=== PATIENT | male | born 1960 | race Caucasian/White ===

== ENCOUNTER → 2018-08-19 18:56 | Outpatient (CLI) | payer BC, SELFPAY ==
[2018-08-19 19:09] LABS: Basophils % 0.6 % (0.1-2.0); Eosinophils # 0.1 K/mm3 (0.0-0.4); Eosinophils % 2.2 % (0.1-12.0); Hematocrit 48.7 % (42.0-52.0); Hemoglobin 16.1 g/dL (14.1-18.0); Lymphocytes # 1.6 K/mm3 (0.7-4.5); Lymphocytes % 25.8 % (10-50); Mean Corpuscular Hemoglobin 30.5 pg (27.0-31.2); Mean Corpuscular Volume 92.4 fl (80-94); Mean Platelet Volume 7.9 fl (7.4-10.4); Monocytes # 0.4 K/mm3 (0.1-1.0); Monocytes % 6.5 % (1.7-9.3); Neutrophils # 4.1 K/mm3 (1.8-7.8); Neutrophils % 64.9 % (37.0-80.0); Platelet Count 258 K/mm3 (142-424); Red Blood Count 5.27 M/mm3 (4.60-6.20); Red Cell Distribution Width 13.6 % (11.5-17.5); White Blood Count 6.2 K/mm3 (4.8-10.8)
[2018-08-19 20:14] LABS: Alanine Aminotransferase 42 U/L (12-78); Albumin/Globulin Ratio 1.1 (1.1-1.8); Alkaline Phosphatase 90 U/L (46-116); Anion Gap 12.1 mEq/L (5-15); Aspartate Amino Transferase 31 U/L (15-37); Bilirubin,Total 0.9 mg/dL (0.2-1.0); Blood Urea Nitrogen 13 mg/dL (7-18); Calcium 8.5 mg/dL (8.5-10.1); Carbon Dioxide 28 mmol/L (21.0-32.0); Chloride 103 mmol/L (98-107); Chol/HDL Ratio 2.8 (1-3.5); Cholesterol 134 mg/dL (140-200); Creatinine,Serum 1.02 mg/dL (0.70-1.30); Estimated Glomerular Filt Rate 75 ml/min (>60); GFR (African American) 90 ML/MIN (>60); Globulin 3.5 gm/dl (1.3-3.2); Glucose 122 mg/dL (74-106); HDL Cholesterol 48 mg/dL (27-67); LDL Cholesterol 70 mg/dL (0-130); Potassium 4.1 mmoL/L (3.5-5.1); Sodium 139 mmol/L (136-145); T4 (Thyroxine) 10.9 ug/dl (4.7-13.3); Thyroid Stimulating Hormone 1.37 uIU/ml (0.358-3.740); Total Protein,Serum 7.5 gm/dL (6.4-8.2); Triglycerides 79 mg/dL (30-200); VLDL Cholesterol 16 mg/dL (0-40)
[2018-08-21 10:32] LABS: PSA, Free 0.22 ng/mL; Prostate Specific Ag 0.6 ng/mL (0.0-4.0); Vitamin D 25 Hydroxy 24.2 ng/mL (30.0-100.0)
== END ==
PROVIDERS: Visit Provider Nurse Practitioner Family
DX: I10 Essential (primary) hypertension (principal); M62.838 Other muscle spasm; Z76.89 Persons encountering health services in other specified circumstances
CPT/HCPCS: 80053; 80061; 82652; 84153; 84154; 84436; 84443; 85025

== ENCOUNTER → 2018-09-12 09:42 | Outpatient (CLI) | payer BC, SELFPAY ==
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
--- NOTE | 2018-09-12 09:45 | XR_ITS ---
EXAM: XR thoracic spine 3V HISTORY: Back pain ITS.REASON: pain Comparison: None FINDINGS: Normal alignment. No fracture or dislocation. No lytic or blastic change. There is multilevel degenerative disc disease with endplate osteophytes. There is mild wedging involving what appears to represent T10 T9 and T8. There are no previous exams available for comparison to determine if these are old or new. There are endplate osteophytes at these levels suggesting a chronic process. IMPRESSION: Multilevel degenerative disc disease with mild loss of height anteriorly at T8-T9 and T10 age indeterminate. MRI may be of further value to determine these are old or acute if clinically warranted
--- NOTE | 2018-09-12 09:45 | XR_ITS ---
EXAM: XR lumbar spine min 4V HISTORY: Low back pain ITS.REASON: pain ORDERING PHYSICIAN: Pako Castillo MD PATIENT AGE: 58 years COMPARISON: None FINDINGS: There is straightening of lumbar lordosis. Mild endplate hypertrophic changes are present from L1 to S1 greater at L4-L5 and L5-S1. There is degenerative disc disease at L4-L5 and L5-S1 greatest at L5-S1. No fracture or dislocation is evident. No lytic or blastic change. Incidental vascular calcification is present. IMPRESSION: Degenerative disc disease L4-L5 and L5-S1 with osteophytosis
--- NOTE | 2018-09-12 09:45 | XR_ITS ---
EXAM: XR cervical spine 5V HISTORY: Neck pain ITS.REASON: pain ORDERING PHYSICIAN: Pako Castillo MD PATIENT AGE: 58 years COMPARISON: None FINDINGS: There is mild degenerative disc disease at C5-6 and C6-C7. There is 3 mm anterolisthesis of C6 on C7. Facet hypertrophic change with right-sided foraminal narrowing at C4-5 E56 C6-C7 and C7-T1. There is mild left foraminal narrowing at C3-C4. No fracture or dislocation. No lytic or blastic change. No cervical rib apparent. IMPRESSION: Cervical spondylosis with degenerative disc disease along with facet and uncovertebral arthrosis with foraminal narrowing as described above
--- NOTE | 2018-09-12 09:46 | CA_ITS ---
PROCEDURE: 2-D M-mode and color Doppler study INDICATIONS FOR THE TEST: Chest pain + COPD Heart Murmur Tobacco Smoking Palpitations+ Fatigue Syncope Edema Hypertension+Diabetes Mellitus Rheumatic Fever SOB+FELICIANO Obesity Hyperlipidemia Family History HD Additional History PATIENT INFORMATION HEIGHT: 71 WEIGHT:225 GENDER: Male B/P:172/98 2-D/M-MODE INTERPRETATION: 2-D MEASUREMENTS OBSERVED VALUES IN CMS Right Ventricular Dimension (RVDd) 2.7 Interventricular Septum (Thickness)(IVsd) 1.1 Left Ventricular Internal Dimensions(LVIDd) 5.0 Left Ventricular Posterior Wall (Thickness)(LVPWd) 1.0 Aortic Root 3.2 Aortic Cusp Separation 2.2 Left Atrial Dimensions (LAD) 3.7 2D 1. Left atrium is mildly enlarged, left ventricle is normal size, mild concentric left ventricular hypertrophy, visually estimated ejection fraction 55% with no regional wall motion abnormality. 2. The right atrium and right ventricle are normal size and contractility. 3. The aortic valve is minimally thickened and fibrosed. 4. The mitral and tricuspid valve leaflets are minimally thickened. 5. The pulmonic valve is poorly visualized. 6. No significant pericardial effusion noted. DOPPLER INTERROGATION: Doppler interrogation of the aortic, mitral and tricuspid valvular presence of mild mitral and tricuspid regurgitation, tricuspid regurgitant jet velocity is inadequate for calculation of the right ventricular systolic pressure, grade 1 diastolic dysfunction seen with tissue Doppler evidence of raised left atrial pressure. CONCLUSION: 1. Mildly enlarged left atrium, normal left ventricular size, mild concentric left ventricular hypertrophy, visually estimated ejection fraction 55% with no regional wall motion abnormality, grade 1 diastolic dysfunction seen with tissue Doppler evidence of raised left atrial pressure. 2. Mild mitral and tricuspid regurgitation. 3. No significant pericardial effusion noted.
--- NOTE | 2018-09-12 09:46 | NM_ITS ---
History and Indications: Hypertension, tobacco use, family history, chest pain, palpitations and fatigue Procedure: Patient received a 0.4, intravenous Lexiscan, resting heart rate was 63 bpm resting blood pressure 177 /100, with Lexiscan maximum heart rate achieved was 74 bpm, which is less than 85% of the maximum predicted heart rate and a blood pressure was 175/101. With Lexiscan patient complained of abdominal pain Electrocardiogram: Resting electrocardiogram showed sinus rhythm inferolateral ST-T subendocardial ischemia, with Lexiscan less than 1.[address] segment depression noted from the baseline EKG. The EKG portion of the Lexiscan Myoview is nondiagnostic. Cardiac stress and resting SPECT images: Cardiac stress and resting SPECT were obtained using technetium 99 Myoview 31.5 mCi stress 10.2 mCi at rest. Gated SPECT further analysis of segmental wall motion and calculation of the ejection fraction also done. Cardiac stress and the suspect show uniform myocardial activity without segmental perfusion abnormality, computer derived ejection fraction 45% with no wall motion abnormality, right ventricle is normal size and contractility. Conclusion: 1. The EKG portion of the Lexiscan Myoview is nondiagnostic. 2. No scintigraphic evidence of reversible ischemia seen, computer derived ejection fraction is 45% with no regional wall motion abnormality, right ventricle are normal size and contractility.
[2018-09-12 12:22] LABS: Erythrocyte Sedimentation Rate 7 mm/hr (0-20)
[2018-09-12 12:26] LABS: C-Reactive Protein 3.1 mg/L (0.0-0.9)
[2018-09-12 13:28] LABS: Anion Gap 14.5 mEq/L (5-15); Blood Urea Nitrogen 13 mg/dL (7-18); Carbon Dioxide 27 mmol/L (21.0-32.0); Chloride 101 mmol/L (98-107); Creatinine,Serum 1.05 mg/dL (0.70-1.30); Estimated Glomerular Filt Rate 72 ml/min (>60); GFR (African American) 87 ML/MIN (>60); Potassium 3.5 mmoL/L (3.5-5.1); Sodium 139 mmol/L (136-145)
[2018-09-12 13:29] LABS: Calcium 8.8 mg/dL (8.5-10.1); Glucose 85 mg/dL (74-106)
--- NOTE | 2018-09-12 13:44 | HMH.ITSHM ---
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 []lisinopril
[2018-09-13 13:12] LABS: Anti-Centromere B Antibodies <0.2 AI (0.0-0.9); Anti-Jo-1 <0.2 AI (0.0-0.9); Anti-Smith Antibody <0.2 AI (0.0-0.9); Antichromatin Antibodies <0.2 AI (0.0-0.9); Antiscleroderma-70 Antibodies <0.2 AI (0.0-0.9); RNP Antibodies <0.2 AI (0.0-0.9); Sjogren's Anti-SS-A <0.2 AI (0.0-0.9); Sjogren's Anti-SS-B <0.2 AI (0.0-0.9)
[2018-09-14 11:58] LABS: Anti-Cyclic Citrullinated Pept 10 units (0-19); Anti-DNA (DS) Ab Qn 1 IU/mL (0-9); RA Latex Turbid. <10.0 IU/mL (0.0-13.9)
== END ==
PROVIDERS: Internal Medicine Cardiovascular Disease; PCP Nurse Practitioner Family; Visit Provider Internal Medicine
DX: R00.2 Palpitations (principal); R07.89 Other chest pain; R60.9 Edema, unspecified; I10 Essential (primary) hypertension; M54.9 Dorsalgia, unspecified; M54.2 Cervicalgia; R52 Pain, unspecified; F17.200 Nicotine dependence, unspecified, uncomplicated
CPT/HCPCS: 36415; 71250; 72050; 72072; 72110; 78452; 80048; 83880; 85651; 86140; 86200; 86225; 86235; 86431; 93017; 93306; A9502; J2785

== ENCOUNTER → 2018-10-08 09:59 | Outpatient (POV) | payer MEDICAID, SELFPAY ==
[2018-10-08 10:19] VITALS: BP 133/85; PULSE 85; RESP 18; O2SAT 98
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
== END ==
PROVIDERS: PCP Nurse Practitioner Family; Visit Provider Clinical Nurse Specialist Family Health
DX: M51.36 Other intervertebral disc degeneration, lumbar region (principal); M48.50XA Collapsed vertebra, not elsewhere classified, site unspecified, initial encounter for fracture
CPT/HCPCS: 99202

== ENCOUNTER → 2018-10-16 13:27 | Outpatient (CLI) | payer MEDICAID, SELFPAY ==
--- NOTE | 2018-10-16 13:29 | MR_ITS ---
MR thoracic spine wo con HISTORY: PT states back pain from neck to low back. Pain X years. Bilateral leg and arm pain, weakness in hands, back locks up. ITS.REASON: BACK PAIN ORDERING PHYSICIAN: Jelena Dueñas PATIENT AGE: 58 years Comparison: X-RAY 09/12/18 TECHNIQUE: Standard multiplanar multiecho sequences are performed without contrast. 3-D MIP and myelographic images are also rendered and reviewed FINDINGS: There is minimal anterolisthesis of C7 on T1. This is on the edge of the field on the sagittal images and may be better evaluated with MRI of the cervical spine. There is some questionable minimal flattening of the cord anteriorly at this level not confirmed on the axial images however. T1-T2: Mild degenerative disc disease There is multilevel anterior and right lateral osteophytes from T3 to T12. There is mild multilevel degenerative disc disease with some decrease in the disc spaces and minimal disc desiccation. This is present T6 to T12. There is minimal right paracentral disc protrusion at T6-T7 without impingement. Minimal central disc protrusion at T10-T11 No extruded herniated disc. No canal stenosis. IMPRESSION: 1. Mild multilevel degenerative disc disease of the thoracic spine as detailed above. 2. Minimal right paracentral disc protrusion at T6-T7 and minimal central disc protrusion at T10-T11. 3. No extruded herniated disc canal stenosis or cord impingement evident. 4. There is minimal anterolisthesis of C7 on T1. There is some questionable minimal contour deformity of the cord at this level on the sagittal images however this is on the edge of the imaging field and may be better evaluated with MRI of the cervical spine if clinically warranted
== END ==
PROVIDERS: PCP Nurse Practitioner Family; Visit Provider Clinical Nurse Specialist Family Health
DX: M54.6 Pain in thoracic spine (principal)
CPT/HCPCS: 72146

== ENCOUNTER → 2018-10-21 10:25 | Outpatient (POV) | payer MEDICAID, SELFPAY ==
[2018-10-21 10:53] VITALS: BP 194/95; PULSE 54; RESP 18; O2SAT 98; BMI 35.5
--- NOTE | 2018-10-21 12:20 | HMH.PAINSOAP ---
[facility] Pain Management SOAP Note Subjective:: Patient is a pleasant 58-year-old white male who presents today for follow-up after thoracic spine MRI. Patient did not have a compression fracture however he did have some degenerative changes. Patient states that most of the pain is at the lower cervical higher thoracic spine. Patient is interested in injective therapy. He is tried physical therapy in the past and continues a home stretching therapy. He is tried and failed multiple medications for the last several years. He has had pain for over 30 years. ROS General: no recent weight change, no fever, no sleep disturbances Respiratory: no cough, no shortness of air, no recurring pulmonary infections Cardiovascular/Peripheral Vascular: No chest pain, No palpitations, no edema, no shortness of breath. Gastrointestinal: no incontinence, normal bowel movements reported Genitourinary: no incontinence Musculoskeletal: Mid back pain, neck pain Psychiatric: normal mood/ affect Neurological: [denies weakness in extremities], [denies balance issues] Objective:: Physical Exam General: Alert and oriented x3, no acute distress, pleasant and cooperative, [on room air] Lungs: Resps E/U, Symmetrical chest expansion, Eyes: PERRL Musculoskeletal: Flexion and extension of cervical and thoracic spine somewhat guarded secondary to pain, deep tendon reflexes normal, strength in upper and lower extremities [5/5], antalgic gait noted Neurological: speech clear, box icer equal, no gross sensory deficits Assessment:: Degenerative disc disease cervical and thoracic spine with cervical radiculopathy Plan:: We will plan a C7-T1 epidural steroid injection. Patient is not on any anticoagulation therapy. I will follow-up with the patient after his injection and reassess his symptoms at that time. Dr. Beck has reviewed this note and agrees with this plan of care. This note was dictated using voice recognition software and may contain errors or omissions
== END ==
PROVIDERS: PCP Nurse Practitioner Family; Visit Provider Clinical Nurse Specialist Family Health
DX: M50.10 Cervical disc disorder with radiculopathy, unspecified cervical region (principal); M51.34 Other intervertebral disc degeneration, thoracic region
CPT/HCPCS: 99213

== ENCOUNTER → 2018-11-26 09:33 | Outpatient (POV) | payer MEDICAID, SELFPAY ==
[2018-11-26 10:07] VITALS: BP 139/97; PULSE 64; RESP 18; O2SAT 98; BMI 31.1
--- NOTE | 2018-12-03 08:58 | P.CONS_ITS ---
[facility] Pain Management SOAP Note Subjective:: She is a very pleasant 58-year-old white male who presents today for follow-up after cervical epidural steroid injection. Patient states it was very beneficial his radicular symptoms have improved significantly. He rates his pain a 4 out of 10 however it is more muscular in nature. Patient does have palpable trigger points cervical paraspinous bilaterally. Patient states he does have muscle spasms at times. Patient is currently on anti-inflammatories. He is also continuing a home stretching program. ROS General: no recent weight change, no fever, no sleep disturbances Respiratory: no cough, no shortness of air, no recurring pulmonary infections Cardiovascular/Peripheral Vascular: No chest pain, No palpitations, no edema, no shortness of breath. Gastrointestinal: no incontinence, normal bowel movements reported Genitourinary: no incontinence Musculoskeletal: Neck pain Psychiatric: normal mood/ affect Neurological: [denies weakness in extremities], [denies balance issues] Objective:: Physical Exam General: Alert and oriented x3, no acute distress, pleasant and cooperative, [on room air] Lungs: Resps E/U, Symmetrical chest expansion, Eyes: PERRL Musculoskeletal: Flexion and extension of cervical spine somewhat guarded secondary to pain, deep tendon reflexes normal, strength in upper and lower extremities [5/5], normal gait noted, palpable trigger points cervical paraspinous and upper trapezius Neurological: speech clear, wet cleaner machine equal, no gross sensory deficits Assessment:: Myofascial pain syndrome, degenerative disc disease cervical spine with cervical radiculopathy Plan:: We will set up trigger point injections for the patient to see if these are beneficial we will also start him on Flexeril 10 mg 1 p.o. 3 times daily as needed. I will follow-up with the patient had his injections he is been instructed to call the office if he has any issues prior to his next appointment. Dr. Beck has reviewed this note and agrees with this plan of care. This note was dictated using voice recognition software and may contain errors or omissions
== END ==
PROVIDERS: PCP Nurse Practitioner Family; Visit Provider Clinical Nurse Specialist Family Health
DX: M79.18 Myalgia, other site (principal); M50.10 Cervical disc disorder with radiculopathy, unspecified cervical region
CPT/HCPCS: 99212

== ENCOUNTER 2019-11-04 12:51 | Inpatient (IN) ==
[2019-11-04 13:42] LABS: Basophils % 0.1 % (0.1-2.0); Eosinophils # 0.1 K/mm3 (0.0-0.4); Eosinophils % 0.9 % (0.1-12.0); Hematocrit 53.2 % (42.0-52.0); Hemoglobin 17.6 g/dL (14.1-18.0); Lymphocytes # 0.7 K/mm3 (0.7-4.5); Lymphocytes % 5.3 % (10-50); Mean Corpuscular HGB Conc 33.2 g/dL (31.8-35.4); Mean Corpuscular Volume 92.1 fl (80-94); Mean Platelet Volume 7.7 fl (7.4-10.4); Monocytes # 0.4 K/mm3 (0.1-1.0); Monocytes % 2.7 % (1.7-9.3); Neutrophils # 12.1 K/mm3 (1.8-7.8); Platelet Count 278 K/mm3 (142-424); Red Blood Count 5.77 M/mm3 (4.60-6.20); Red Cell Distribution Width 13.3 % (11.5-17.5); White Blood Count 13.3 K/mm3 (4.8-10.8)
[2019-11-04 13:45] LABS: Alanine Aminotransferase 32 U/L (12-78); Albumin Level 4.7 g/dl (3.5-5.0); Albumin/Globulin Ratio 1.2 (1.1-1.8); Alkaline Phosphatase 87 U/L (38-126); Amylase 55 U/L (30-110); Anion Gap 16.9 mEq/L (5-15); Aspartate Amino Transferase 29 U/L (17-59); Bilirubin,Total 1.4 mg/dl (0.2-1.3); Blood Urea Nitrogen 21 mg/dl (9-20); Calcium 9.9 mg/dl (8.4-10.2); Carbon Dioxide 25 mmol/L (22.0-30.0); Chloride 99 mmol/L (98-107); Globulin 3.8 g/dL (1.3-3.2); Glucose 178 mg/dl (74-100); Sodium 137 mmol/L (136-145); Total Protein,Serum 8.5 g/dl (6.3-8.2)
[2019-11-04 13:53] LABS: Hypochromasia 1+; Lymphocytes % 5 % (10-50); Monocytes % 5 % (2-9); Neutrophils % 90 % (42-76); Total Cells Counted 100
--- NOTE | 2019-11-04 15:00 | Emergency Department Note ---
ED Disposition Clinical Impression: Gastroenteritis, Small bowel obstruction Disposition: Admitted as Observation Condition on Discharge: Good Additional Instructions: Spoke to Dr. Victor for admission. Referrals: Maya Morrison APRN [Primary Care Provider] - - Critical Care Critical Care Time: No Attestation: On 11/04/19, the high probability of a clinically significant, sudden or life threatening deterioration of the following system(s) required my full and direct attention, intervention and personal management. The time I documented below is in addition to time spent performing reported procedures but includes the following listed in this critical care notation. Medical Decision Making - Medical Records Medical records reviewed: Yes: I reviewed the patient's medical records. - Linus Inquiry Pt receiving controlled substance: No Vital Signs: 11/04/19 13:01 11/04/19 13:02 11/04/19 14:27 Temperature 98.3 F Temperature Source Oral Pulse Rate [Left Radial] 70 65 62 Respiratory Rate 20 16 Blood Pressure [Left Arm] 212/117 H Blood Pressure [Right Arm] 214/114 H 213/117 H Blood Pressure Mean [Left Arm] 148 Blood Pressure Mean [Right Arm] 147 149 Blood Pressure Position [Left Arm] Sitting Blood Pressure Position [Right Arm] Sitting Sitting Supine 02 Sat by Pulse Oximetry 98 95 Oxygen Delivery Method Room Air - Lab Data Lab results reviewed: Yes: I reviewed the patient's lab results. Lab Results 11/04/19 13:29: WBC 13.3 H, RBC 5.77, Hgb 17.6, Hct 53.2 H, MCV 92.1, MCH 30.5, MCHC 33.2, RDW 13.3, Plt Count 278, MPV 7.7, Neut % (Auto) 91.0 H, Lymph % (Auto) 5.3 L, [place] % (Auto) 2.7, Eos % (Auto) 0.9, Baso % (Auto) 0.1, Neut # (Auto) 12.1 H, Lymph # (Auto) 0.7, [place] # (Auto) 0.4, Eos # (Auto) 0.1, Baso # (Auto) 0.0, Total Counted 100, Neutrophils % (Manual) 90 H, Lymphocytes % (Manual) 5 L, Monocytes % (Manual) 5, Platelet Estimate Normal, Hypochromasia 1+ 11/04/19 13:29: Sodium 137, Potassium 3.9, Chloride 99, Carbon Dioxide 25, Anion Gap 16.9 H, BUN 21 H, Creatinine 0.90, Estimated Creat Clear 126, Estimated GFR 86, Est GFR ( Amer) 104, Glucose 178 H, Calcium 9.9, Total Bilirubin 1.4 H, AST 29, ALT 32, Alkaline Phosphatase 87, Troponin I < 0.01, Total Protein 8.5 H, Albumin 4.7, Globulin 3.8 H, Albumin/Globulin Ratio 1.2, Amylase 55, Lipase 38 Result diagrams: 11/04/19 13:29 11/04/19 13:29 Orders (Tests/Meds): ED MEDICATIONS Discontinued Medications Generic Name Dose Route Start Last Admin Trade Name Freq PRN Reason Stop Dose Admin Hydromorphone HCl 1 mg 11/04/19 15:00 Dilaudid 2mg/Ml Syringe IV 11/04/19 15:01 ONCE ONE Hydromorphone HCl 0.5 mg 11/04/19 15:00 Dilaudid 2mg/Ml Syringe IV 11/04/19 15:01 ONCE ONE Sodium Chloride 1,000 mls @ 999 mls/hr 11/04/19 13:15 11/04/19 13:32 Sod Chlor 0.9% 1000ml Bag IV 11/04/19 14:15 999 mls/hr .Q1H1M RAGINI Administration Ioversol 75 ml 11/04/19 14:05 11/04/19 14:07 Rad-Optiray 350 100ml Vial IV 11/04/19 14:06 75 ml ONCE ONE Administration Protocol Ondansetron HCl 4 mg 11/04/19 13:08 11/04/19 13:32 Zofran 4mg/2ml Vial IV 11/04/19 13:09 4 mg ONCE ONE Administration Sodium Chloride 10 ml 11/04/19 14:05 11/04/19 14:07 Rad-Saline Flush 10ml Syringe IV 11/04/19 14:06 10 ml ONCE ONE Administration ORDERS Category Date Time Status Troponin I Q3H Lab 11/04/19 16:15 Ordered Troponin I Q3H Lab 11/04/19 19:15 Ordered Urinalysis and Microscopic Stat Lab 11/04/19 13:09 Ordered - CT Data CT Scan: Abdomen Time Received: 15:00 Preliminary Findings: Abnormal (Possible small bowel obstruction, inflammation around small and also large bowel which could be indicated of enteritis.) Abdominal Pain HPI - General Chief Complaint: Abdominal Pain Stated Complaint: Stomach pain Time Seen by Provider: 11/04/19 14:00 Mode of Arrival: Ambulatory Source of Information: Patient Limitations: No Limitations Description of Symptoms (Recalled from ER Triage Doc. by RN): to ed per pvt car with c/o generalized abd pain nausea, vomiting starting yesterday. pt denies cough, fever. denies sick contacts. pt states has hx of bowel obstruction - History of Present Illness HPI narrative: 59-year-old male presents the ED complaining of generalized abdominal pain. He states that the states that the abdominal pain did start yesterday and progressively got worse as the day has progressed. He also states he is had a couple episodes of emesis. He states the the abdominal pain is 6 out of 10 8 out of 10 and at its crescendo. Alleviating factors include flexion at the wais t and exacerbating factors include movement. He denies any recent fever shakes or chills. Patient also denies any chest pain or shortness of breath or cough. - Related Data Previous Rx's Medication Instructions Recorded losartan 100 1 tab PO DAILY #90 tab 03/11/19 mg-hydrochlorothiazide 25 mg tablet metoprolol succinate 25 mg 25 mg PO DAILY #90 tab 03/28/19 tablet,extended release 24 hr aspirin 81 mg tablet,delayed 81 mg PO DAILY #30 tab 07/02/19 release cholecalciferol (vitamin D3) 125 5,000 unit PO DAILY #90 cap 08/12/19 mcg (5,000 unit) capsule Allergies Allergy/AdvReac Type Severity Reaction Status Date / Time codeine [CODEINE] Allergy Severe S-SWELLS-OR Verified 11/14/18 11:35 AL/THROAT acetaminophen Allergy Mild Verified 11/14/18 11:35 [From DARVOCET-N 100] morphine [MORPHINE] Allergy Mild Verified 11/14/18 11:35 Penicillins Allergy Mild Verified 11/14/18 11:35 propoxyphene Allergy Mild Verified 11/14/18 11:35 [From DARVOCET-N 100] [facility] History - Hepatitis A Screen Drug use history?: No High risk sexual behaviors?: No History of sexually transmitted infection?: No Currently employed?: No Childcare worker?: No Do you have indoor plumbing?: Yes Do you have electricity?: Yes Attestation statement:: This patient has been screened for Hepatitis A risk factors. I have reviewed the patient's past medical history: Yes Medical History: Reports:: Gastroesophageal Reflux Disease(GERD), Hypertension Denies:: Cancer, Diabetes Mellitus Type 1, Diabetes Mellitus Type 2, Internal Pacemaker, Lung Disease, MRSA, Seizures Other Medical History: Denies: Blood Transfusion Reaction Other Surgeries: Yes: No Previous Surgery, Appendectomy, Cholecystectomy, Colonoscopy, Other. No: Pacemaker Amputation: No Fractures: Yes - Social History Smoking Status: Current every day smoker Tobacco Type: cigarettes # Packs/Day (cigarettes): 1 #Yrs smoked (if former smoker): 20 Alcohol Intake: never Alcohol Intake Frequency:: other Substance Use Type: marijuana Occupational Status: other Housing: other Household Members: significant other Family Hx:: Coronary Artery Disease, Diabetes, Hypertension Comment: Mother-CAD around 70's ROS Obtained: Yes All systems reviewed & no additional complaints - Constitutional Constitutional: Reports system reviewed and no additional complaints, except as docu - Eyes Eyes: Reports system reviewed and no additional complaints, except as docu - ENT Ears, Nose, Mouth, and Throat: Reports system reviewed and no additional complaints, except as docu - Cardiovascular Cardiovascular: Reports system reviewed and no additional complaints, except as docu - Respiratory Respiratory: Yes system reviewed and no additional complaints, except as docu - Gastrointestinal Gastrointestingal: Reports: system reviewed and no additional complaints, except as docu - Genitourinary Male Genitourinary: Reports system reviewed and no additional complaints, except as docu Female Genitourinary: Reports system reviewed and no additional complaints, except as docu - Musculoskeletal Musculoskeletal: Reports system reviewed and no additional complaints, except as docu - Integumentary/Breasts Skin/Breast: Reports system reviewed and no additional complaints, except as docu - Neurologic Neurologic: Reports system reviewed and no additional complaints, except as docu - Endocrine Endocrine: Reports system reviewed and no additional complaints, except as docu - Hematologic/Lymphatic Henatologic/Lymphatic: Reports system reviewed and no additional complaints, except as docu - Allergic/Immunologic Allergic/Immunologic: Reports system reviewed and no additional complaints, e xcept as docu Physical Exam - General General appearance: alert, anxious - Head Head exam: atraumatic, normocephalic - Eye Eye exam: Present: normal appearance, PERRL - ENT ENT exam: Present: normal exam, normal oropharynx - Neck Neck exam: Present: normal inspection - Chest Chest inspection: Present: normal inspection - Respiratory Respiratory exam: Present: normal lung sounds bilaterally - Cardiovascular Cardiovascular exam: Present: regular rate, normal rhythm - Abdominal Exam Abdominal exam: Present: soft - Back Exam Back exam: Present: normal inspection, full ROM - Neurological Exam Neurological exam: Present: alert, oriented X3 - Psychiatric Psychiatric exam: Present: normal affect, normal mood - Skin Skin exam: Present: warm, dry, intact - Lymphatic Lymphatic Findings: no adenopathy
--- NOTE | 2019-11-04 15:54 | Pharmacy Consult Notes ---
[facility] Pharmacy VTE Monitoring - Patient Demographics Admission date: 11/04/19 Report Date: 11/04/19 Time: 15:54 Allergies/Adverse Reactions: Patient Allergies codeine [CODEINE] Allergy (Severe, Verified 11/14/18 11:35) [id number]/THROAT acetaminophen [From DARVOCET-N 100] Allergy (Mild, Verified 11/14/18 11:35) morphine [MORPHINE] Allergy (Mild, Verified 11/14/18 11:35) Penicillins Allergy (Mild, Verified 11/14/18 11:35) propoxyphene [From DARVOCET-N 100] Allergy (Mild, Verified 11/14/18 11:35) Height: 1.85 m Weight: 102.058 kg Patient Problems: Current Active Problems Gastroenteritis (Acute) Small bowel obstruction (Acute) - VTE Risk Labs: VTE Related Lab Results Hgb 17.6 g/dL (14.1-18.0) 11/04/19 13:29 Hct 53.2 % (42.0-52.0) H 11/04/19 13:29 Plt Count 278 K/mm3 (142-424) 11/04/19 13:29 BUN 21 mg/dl (9-20) H 11/04/19 13:29 Creatinine 0.90 mg/dl (0.66-1.25) 11/04/19 13:29 Estimated Creat Clear 126 mL/min (50-200) 11/04/19 13:29 - Prophylaxis VTE Prophylaxis Ordered?: Yes Types of VTE Prophylaxis: TEDS Knee High Location of Applied Device: Bilateral Lower Extremeties - VTE Diagnosis Confirmed Treatment or plan recommended: Continue Current Treatment
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
--- NOTE | 2019-11-04 21:23 | History & Physical Report ---
*Admission Date: 11/04/19 *Chief complaint: abd pain *History of present illness: this wm presented to the ed with mid abd pain and vomiting - 59-year-old male presents the ED complaining of generalized abdominal pain. He states that the states that the abdominal pain did start yesterday and progressively got worse as the day has progressed. He also states he is had a couple episodes of emesis. He states the the abdominal pain is 6 out of 10 8 out of 10 and at its crescendo. Alleviating factors include flexion at the waist and exacerbating factors include movement. He denies any recent fever shakes or chills. Patient also denies any chest pain or shortness of breath or cough. ct showed possible sbo and pt was admitted with ivf and surg consult and pain meds [facility] History I have reviewed the patient's past medical history: Yes Medical History: Reports:: Coronary Artery Disease, Gastroesophageal Reflux Disease(GERD), Hypertension Denies:: Cancer, Diabetes Mellitus Type 1, Diabetes Mellitus Type 2, Internal Pacemaker, Lung Disease, MRSA, Seizures *Have you ever received a pneumonia vaccine?: No *Have you received a flu vaccine this season?: No Other Medical History: Denies: Blood Transfusion Reaction Other Surgeries: Yes: No Previous Surgery, Appendectomy, Cholecystectomy, Colonoscopy, Other. No: Pacemaker Amputation: No Fractures: Yes - *Social History Smoking Status: Current every day smoker Tobacco Type: cigarettes # Packs/Day (cigarettes): 1 #Yrs smoked (if former smoker): 20 Alcohol Intake: never Alcohol Intake Frequency:: other Substance Use Type: marijuana *Occupational Status:: disabled Housing: other Household Members: significant other *Travel in the last 8 weeks: None Family Hx:: Coronary Artery Disease, Diabetes, Hypertension Review of Systems - Review of Systems Review of systems:: pertinent systems reviewed and negative unless documented below - Constitutional Denies fever(s) - Eyes Denies change in vision - ENT Denies sore throat - *Cardiovascular Denies chest pain, Denies shortness of breath - *Respiratory Denies cough - *Gastrointestinal Reports abdominal pain, Reports nausea, Reports vomiting - *Genitourinary Denies decreased urination - *Musculoskeletal Denies joint pain, Denies neck pain - Integumentary/Breasts Denies rash - *Neurologic Denies localized weakness - Psychiatric Denies confusion Meds Home Medications Medication Instructions Recorded Confirmed Type metoprolol succinate 25 mg 25 mg PO DAILY #90 tab 03/28/19 11/04/19 Rx tablet,extended release 24 hr cholecalciferol (vitamin D3) 125 5,000 unit PO DAILY #90 cap 08/12/19 11/04/19 Rx mcg (5,000 unit) capsule Aspirin [Low Dose Aspirin EC] 81 mg PO DAILY 11/04/19 11/04/19 History Losartan Potassium [Cozaar 100mg 100 mg PO DAILY 11/04/19 11/04/19 History Tablets] hydroCHLOROthiazide [HCTZ 25mg 25 mg PO DAILY 11/04/19 11/04/19 History tab] Allergies Allergy/AdvReac Type Severity Reaction Status Date / Time codeine [CODEINE] Allergy Severe S-SWELLS-OR Verified 11/14/18 11:35 AL/THROAT acetaminophen Allergy Mild Verified 11/14/18 11:35 [From DARVOCET-N 100] morphine [MORPHINE] Allergy Mild Verified 11/14/18 11:35 Penicillins Allergy Mild Verified 11/14/18 11:35 propoxyphene Allergy Mild Verified 11/14/18 11:35 [From DARVOCET-N 100] Exam Vital signs and Labs for Last 24 Hours: Temp Pulse Resp BP Pulse Ox 99.7 F H 77 18 190/118 H 94 L 11/04/19 21:06 11/04/19 20:00 11/04/19 20:00 11/04/19 21:06 11/04/19 20:00 Laboratory Results - last 24 hr 11/04/19 13:29: WBC 13.3 H, RBC 5.77, Hgb 17.6, Hct 53.2 H, MCV 92.1, MCH 30.5, MCHC 33.2, RDW 13.3, Plt Count 278, MPV 7.7, Neut % (Auto) 91.0 H, Lymph % (Auto) 5.3 L, [place] % (Auto) 2.7, Eos % (Auto) 0.9, Baso % (Auto) 0.1, Neut # (Auto) 12.1 H, Lymph # (Auto) 0.7, [place] # (Auto) 0.4, Eos # (Auto) 0.1, Baso # (Auto) 0.0, Total Counted 100, Neutrophils % (Manual) 90 H, Lymphocytes % (Manual) 5 L, Monocytes % (Manual) 5, Platelet Estimate Normal, Hypochromasia 1+ 11/04/19 13:29: Sodium 137, Potassium 3.9, Chloride 99, Carbon Dioxide 25, Anion Gap 16.9 H, BUN 21 H, Creatinine 0.90, Estimated Creat Clear 126, Estimated GFR 86, Est GFR ( Amer) 104, Glucose 178 H, Calcium 9.9, Total Bilirubin 1.4 H, AST 29, ALT 32, Alkaline Phosphatase 87, Troponin I < 0.01, Total Protein 8.5 H, Albumin 4.7, Globulin 3.8 H, Albumin/Globulin Ratio 1.2, Amylase 55, Lipase 38 I & O for Last 24 hours: Intake & Output 11/02/19 11/03/19 11/04/19 11/05/19 11:59 11:59 11:59 11:59 Intake Total 100 / 100 Balance 100 / 100 Weight 202 lb 5 oz - Constitutional no acute distress - *Routine HEENT Exam Head: Present: normocephalic Eye: Present: EOMI, PERRL ENT: Present: mucous membranes dry - *Routine Neck Exam Present: supple - *Routine Respiratory Exam Present: CTA bilaterally - *Routine Cardiovascular Exam Present: RRR, murmur - *Routine Abdominal Exam Present: soft, tenderness - *Routine Extremities Exam Present: full ROM - Routine Back/Spine/Pelvis Exam Back/Spine: Present: full ROM - *Routine Skin Exam Present: intact - *Routine Neurological Exam Present: alert, CN II-XII intact - Routine Psychiatric Exam Present: normal affect Assessment and Plan (1) Small bowel obstruction Current visit: Yes Status: Acute Category: Medical Code(s): K56.609 - Unspecified intestinal obstruction, unspecified as to partial versus complete obstruction (2) Tobacco abuse Current visit: No Status: Chronic Category: Medical Code(s): Z72.0 - Tobacco use (3) Enteritis Current visit: Yes Status: Acute Category: Medical Code(s): K52.9 - Noninfective gastroenteritis and colitis, unspecified
--- NOTE | 2019-11-05 08:45 | Progress Note ---
Subjective Narrative: Patient resting comfortably. No additional vomiting. No diarrhea. Complains of abdominal "soreness" Exam Vital signs and Labs for Last 24 Hours: Temp Pulse Resp BP Pulse Ox 98.6 F 63 17 134/86 94 L 11/05/19 08:00 11/05/19 08:00 11/05/19 08:00 11/05/19 08:00 11/05/19 08:00 Laboratory Results - last 24 hr 11/04/19 13:29: WBC 13.3 H, RBC 5.77, Hgb 17.6, Hct 53.2 H, MCV 92.1, MCH 30.5, MCHC 33.2, RDW 13.3, Plt Count 278, MPV 7.7, Neut % (Auto) 91.0 H, Lymph % (Auto) 5.3 L, [facility] % (Auto) 2.7, Eos % (Auto) 0.9, Baso % (Auto) 0.1, Neut # (A uto) 12.1 H, Lymph # (Auto) 0.7, [facility] # (Auto) 0.4, Eos # (Auto) 0.1, Baso # (Auto) 0.0, Total Counted 100, Neutrophils % (Manual) 90 H, Lymphocytes % (Manual) 5 L, Monocytes % (Manual) 5, Platelet Estimate Normal, Hypochromasia 1+ 11/04/19 13:29: Sodium 137, Potassium 3.9, Chloride 99, Carbon Dioxide 25, Anion Gap 16.9 H, BUN 21 H, Creatinine 0.90, Estimated Creat Clear 126, Estimated GFR 86, Est GFR ( Amer) 104, Glucose 178 H, Calcium 9.9, Total Bilirubin 1.4 H, AST 29, ALT 32, Alkaline Phosphatase 87, Troponin I < 0.01, Total Protein 8.5 H, Albumin 4.7, Globulin 3.8 H, Albumin/Globulin Ratio 1.2, Amylase 55, Lipase 38 I & O for Last 24 hours: Intake & Output 11/02/19 11/03/19 11/04/19 11/05/19 11:59 11:59 11:59 11:59 Intake Total 1325 / 1325 Balance 1325 / 1325 Weight 207 lb 6 oz - *Routine Abdominal Exam Present: soft, tenderness Progress Note: A&P Assessment and Plan for All Diagnoses:: Patient's acute abdominal series this morning shows improvement. Concerning with his abdominal tenderness. Continue slow progressive nonoperative management for now.
--- NOTE | 2019-11-05 18:33 | Progress Note ---
Internal Medicine - PN: Subj *Date: 11/05/19 *Time: 09:00 Interval history: pt states he is feeling better today Exam Vital signs and Labs for Last 24 Hours: Temp Pulse Resp BP Pulse Ox 99.1 F 54 L 18 136/79 95 11/05/19 16:00 11/05/19 16:00 11/05/19 16:00 11/05/19 16:00 11/05/19 16:00 I & O for Last 24 hours: Intake & Output 11/03/19 11/04/19 11/05/19 11/06/19 11:59 11:59 11:59 11:59 Intake Total 1525 / 1525 0 / 0 Balance 1525 / 1525 0 / 0 Weight 207 lb 6 oz 207 lb 3.752 oz - Constitutional no acute distress - *Routine HEENT Exam Head: Present: normocephalic Eye: Present: PERRL ENT: Present: mucous membranes moist - *Routine Neck Exam Present: supple. Absent: lymphadenopathy - *Routine Respiratory Exam Present: CTA bilaterally - *Routine Cardiovascular Exam Present: RRR - *Routine Abdominal Exam Present: soft, normoactive bowel sounds, tenderness - *Routine Extremities Exam Absent: cyanosis, clubbing, edema - *Routine Skin Exam Present: warm. Absent: rash - *Routine Neurological Exam Present: alert, oriented X3 - Routine Psychiatric Exam Present: normal affect Assessment and Plan (1) Small bowel obstruction Current visit: Yes Status: Acute Category: Medical Code(s): K56.609 - Unspecified intestinal obstruction, unspecified as to partial versus complete obstruction (2) Tobacco abuse Current visit: No Status: Chronic Category: Medical Code(s): Z72.0 - Tobacco use (3) Enteritis Current visit: Yes Status: Acute Category: Medical Code(s): K52.9 - Noninfective gastroenteritis and colitis, unspecified - Assessment and plan all Dx Assessment and Plan for all problems:: rounded with florencio all orders per dr matias surgery consult
--- NOTE | 2019-11-05 21:38 | Electrocardiograph Report ---
APPROVED REPORT Exam: Resting ECG HR:61 bpm ECG Measurements Heart Rate 61 AXES PA 190 P 54 QRSd 100 QRS 85 QT 472 T44 QTc 475 <Conclusion> Normal sinus rhythm Minimal voltage criteria for LVH, may be normal variant Prolonged QT Abnormal ECG Electronically signed by : Leland Ivory, 11/05/2019 21:38:36
--- NOTE | 2019-11-06 07:08 | Progress Note ---
Subjective Patient reports: feels better, flatus, no bowel movement Narrative: He states that he feels "quite a bit better this morning". He tolerated clear liquids yesterday. Although he has yet to have a bowel movement, he does continue to pass flatus. Exam Vital signs and Labs for Last 24 Hours: Temp Pulse Resp BP Pulse Ox 98.4 F 54 L 16 157/90 H 95 11/06/19 04:48 11/06/19 04:48 11/06/19 04:48 11/06/19 04:48 11/06/19 04:48 I & O for Last 24 hours: Intake & Output 11/03/19 11/04/19 11/05/19 11/06/19 11:59 11:59 11:59 11:59 Intake Total 1525 / 1525 900 / 900 Balance 1525 / 1525 900 / 900 Weight 207 lb 6 oz 209 lb 3 oz - Constitutional no acute distress - *Routine Respiratory Exam Absent: respiratory distress - *Routine Cardiovascular Exam Present: RRR - *Routine Abdominal Exam Present: soft. Absent: distended Comments: Some tenderness throughout abdomen but per the patient this is "much better" Progress Note: A&P (1) Small bowel obstruction Status: Acute Assessment and plan: No definitive sign of obstruction; however, partial/resolving obstruction not completely ruled out. He does continue to slowly improve. His symptoms are more likely secondary to enteritis. Full liquid diet ordered for lunch Continue serial exams Current Visit: Yes (2) Tobacco abuse Status: Chronic Current Visit: No (3) Enteritis Status: Acute Assessment and plan: Ongoing treatment as per primary service Current Visit: Yes
--- NOTE | 2019-11-06 09:52 | Progress Note ---
Internal Medicine - PN: Subj *Date: 11/06/19 *Time: 09:50 Interval history: doing better - passing gas - ok with diet will check labs Exam Vital signs and Labs for Last 24 Hours: Temp Pulse Resp BP Pulse Ox 98.6 F 55 L 16 166/80 H 98 11/06/19 08:00 11/06/19 08:00 11/06/19 08:00 11/06/19 08:00 11/06/19 08:00 I & O for Last 24 hours: Intake & Output 11/03/19 11/04/19 11/05/19 11/06/19 11:59 11:59 11:59 11:59 Intake Total 1525 / 1525 2969 / 2969 Balance 1525 / 1525 2969 / 2969 Weight 207 lb 6 oz 209 lb 3 oz - Constitutional no acute distress - *Routine HEENT Exam Head: Present: normocephalic Eye: Present: EOMI, PERRL ENT: Present: mucous membranes moist - *Routine Neck Exam Present: supple. Absent: JVD - *Routine Respiratory Exam Present: CTA bilaterally - *Routine Cardiovascular Exam Present: RRR. Absent: murmur - *Routine Abdominal Exam Present: soft - *Routine Extremities Exam Present: full ROM - *Routine Skin Exam Present: intact - *Routine Neurological Exam Present: alert, oriented X3, CN II-XII intact - Routine Psychiatric Exam Present: normal affect Assessment and Plan (1) Small bowel obstruction Current visit: Yes Status: Acute Category: Medical Code(s): K56.609 - Unspecified intestinal obstruction, unspecified as to partial versus complete obstruction (2) Tobacco abuse Current visit: No Status: Chronic Category: Medical Code(s): Z72.0 - Tobacco use (3) Enteritis Current visit: Yes Status: Acute Category: Medical Code(s): K52.9 - Noninfective gastroenteritis and colitis, unspecified
[2019-11-06 10:41] LABS: Basophils % 0.5 % (0.1-2.0); Eosinophils # 0.1 K/mm3 (0.0-0.4); Hematocrit 41.9 % (42.0-52.0); Hemoglobin 13.8 g/dL (14.1-18.0); Lymphocytes # 1.4 K/mm3 (0.7-4.5); Lymphocytes % 19.9 % (10-50); Mean Corpuscular HGB Conc 32.9 g/dL (31.8-35.4); Mean Corpuscular Volume 93.2 fl (80-94); Mean Platelet Volume 7.7 fl (7.4-10.4); Monocytes # 0.4 K/mm3 (0.1-1.0); Monocytes % 5.6 % (1.7-9.3); Platelet Count 237 K/mm3 (142-424); Red Cell Distribution Width 13.3 % (11.5-17.5); White Blood Count 6.8 K/mm3 (4.8-10.8)
[2019-11-06 10:44] LABS: Albumin Level 3.3 g/dl (3.5-5.0); Albumin/Globulin Ratio 1.2 (1.1-1.8); Anion Gap 9.7 mEq/L (5-15); Bilirubin,Total 0.7 mg/dl (0.2-1.3); Globulin 2.7 g/dL (1.3-3.2)
[2019-11-06 11:01] LABS: Calcium 8.4 mg/dl (8.4-10.2)
--- NOTE | 2019-11-07 08:11 | Progress Note ---
Subjective Patient reports: no new complaints Narrative: Patient feels better. Tolerating full liquids. Stool positive for C. Diff Exam Vital signs and Labs for Last 24 Hours: Temp Pulse Resp BP Pulse Ox 98.6 F 52 L 18 182/87 H 96 11/07/19 04:00 11/07/19 04:00 11/07/19 04:00 11/07/19 04:00 11/07/19 04:00 Laboratory Results - last 24 hr 11/06/19 10:22: WBC 6.8 D, RBC 4.50 L, Hgb 13.8 L, Hct 41.9 L, MCV 93.2, MCH 30.7, MCHC 32.9, RDW 13.3, Plt Count 237, MPV 7.7, Neut % (Auto) 73.0, Lymph % (Auto) 19.9, [place] % (Auto) 5.6, Eos % (Auto) 1.0, Baso % (Auto) 0.5, Neut # (Auto) 5.0, Lymph # (Auto) 1.4, [place] # (Auto) 0.4, Eos # (Auto) 0.1, Baso # (Auto) 0.0 11/06/19 10:22: Sodium 136, Potassium 3.7, Chloride 104, Carbon Dioxide 26, Anion Gap 9.7, BUN 13 D, Creatinine 0.90, Estimated Creat Clear 117, Estimated GFR 86, Est GFR ( Amer) 104, Glucose 110 H, Calcium 8.4 D, Total Bilirubin 0.7, AST 29, ALT 22 D, Alkaline Phosphatase 56, Total Protein 6.0 L D , Albumin 3.3 L, Globulin 2.7, Albumin/Globulin Ratio 1.2 11/06/19 14:45: Stl Aeromonas (PCR) Not detected, Stl C. cayetanensis PCR Not detected, Stool Rotavirus (PCR) Not detected, Stl Adenov F 40/41 PCR Not detected, Stool Astrovirus (PCR) Not detected, Stool Campylobacter PCR Not detected, Stl C.difficile Tox PCR Detected A, Stool Cryptosporidium PCR Not detected, Stl E.coli Shiga Tox PCR Not detected, Stool E coli O157 PCR Not detected, Stl Enterotoxigenic E PCR Not detected, Stool EPEC (PCR) Not detected, Stool EAEC (PCR) Not detected, Stl E. histolytica PCR Not detected, Stool Giardia Lamblia PCR Not detected, Stool Salmonella PCR Not detected, Stool Sapovirus (PCR) Not detected, Stl P. shigelloides PCR Not detected, Stl Shigella/EIEC PCR Not detected, St Y.enterocolitica PCR Not detected, Stool Vibrio (PCR) Not detected, Stl Vibrio cholerae PCR Not detected, Stl Norovirus GI/GII PCR Not detected I & O for Last 24 hours: Intake & Output 11/04/19 11/05/19 11/06/19 11/07/19 11:59 11:59 11:59 11:59 Intake Total 1525 / 1525 3169 / 3169 4154 / 4154 Balance 1525 / 1525 3169 / 3169 4154 / 4154 Weight 207 lb 6 oz 209 lb 3 oz 211 lb - *Routine Abdominal Exam Present: soft. Absent: tenderness Progress Note: A&P (1) Small bowel obstruction Status: Acute Current Visit: Yes (2) Tobacco abuse Status: Chronic Current Visit: No (3) Enteritis Status: Acute Current Visit: Yes Assessment and Plan for All Diagnoses:: Advance diet. Medical management of C. Diff enterocolitis
--- NOTE | 2019-11-07 09:44 | Progress Note ---
Internal Medicine - PN: Subj *Date: 11/07/19 *Time: 09:44 Exam Vital signs and Labs for Last 24 Hours: Temp Pulse Resp BP Pulse Ox 98.2 F 65 16 167/80 H 96 11/07/19 08:00 11/07/19 08:00 11/07/19 08:00 11/07/19 08:00 11/07/19 08:00 Laboratory Results - last 24 hr 11/06/19 10:22: WBC 6.8 D, RBC 4.50 L, Hgb 13.8 L, Hct 41.9 L, MCV 93.2, MCH 30.7, MCHC 32.9, RDW 13.3, Plt Count 237, MPV 7.7, Neut % (Auto) 73.0, Lymph % (Auto) 19.9, [facility] % (Auto) 5.6, Eos % (Auto) 1.0, Baso % (Auto) 0.5, Neut # (Auto) 5.0, Lymph # (Auto) 1.4, [facility] # (Auto) 0.4, Eos # (Auto) 0.1, Baso # (Auto) 0.0 11/06/19 10:22: Sodium 136, Potassium 3.7, Chloride 104, Carbon Dioxide 26, Anion Gap 9.7, BUN 13 D, Creatinine 0.90, Estimated Creat Clear 117, Estimated GFR 86, Est GFR ( Amer) 104, Glucose 110 H, Calcium 8.4 D, Total Bilirubin 0.7, AST 29, ALT 22 D, Alkaline Phosphatase 56, Total Protein 6.0 L D , Albumin 3.3 L, Globulin 2.7, Albumin/Globulin Ratio 1.2 11/06/19 14:45: Stl Aeromonas (PCR) Not detected, Stl C. cayetanensis PCR Not detected, Stool Rotavirus (PCR) Not detected, Stl Adenov F 40/41 PCR Not detected, Stool Astrovirus (PCR) Not detected, Stool Campylobacter PCR Not detected, Stl C.difficile Tox PCR Detected A, Stool Cryptosporidium PCR Not detected, Stl E.coli Shiga Tox PCR Not detected, Stool E coli O157 PCR Not d etected, Stl Enterotoxigenic E PCR Not detected, Stool EPEC (PCR) Not detected, Stool EAEC (PCR) Not detected, Stl E. histolytica PCR Not detected, Stool Giardia Lamblia PCR Not detected, Stool Salmonella PCR Not detected, Stool Sapovirus (PCR) Not detected, Stl P. shigelloides PCR Not detected, Stl Shigella/EIEC PCR Not detected, St Y.enterocolitica PCR Not detected, Stool Vibrio (PCR) Not detected, Stl Vibrio cholerae PCR Not detected, Stl Norovirus GI/GII PCR Not detected I & O for Last 24 hours: Intake & Output 11/04/19 11/05/19 11/06/19 11/07/19 23:59 23:59 23:59 23:59 Intake Total 200 / 200 2205 / 2325 4366 / 5561 2557 / 2557 Balance 200 / 200 2205 / 2325 4366 / 5561 2557 / 2557 Weight 91.767 kg 94 kg 94.886 kg 95.708 kg Assessment and Plan (1) Small bowel obstruction Current visit: Yes Status: Acute Category: Medical Code(s): K56.609 - Unspecified intestinal obstruction, unspecified as to partial versus complete obstruction (2) Tobacco abuse Current visit: No Status: Chronic Category: Medical Code(s): Z72.0 - Tobacco use (3) Enteritis Current visit: Yes Status: Acute Category: Medical Code(s): K52.9 - Noninfective gastroenteritis and colitis, unspecified The patient's infection will respond to the chosen ABx?: Yes Is the patient receiving the right drug, dose, and route?: Yes Could a more targeted ABx be ordered?: No
--- NOTE | 2019-11-07 09:48 | Discharge Summary ---
General - General Admission date:: 11/04/19 Discharge date: 11/07/19 HPI HPI: this wm presented to the ed with mid abd pain and vomiting - 59-year-old male presents the ED complaining of generalized abdominal pain. He states that the states that the abdominal pain did start yesterday and progressively got worse as the day has progressed. He also states he is had a couple episodes of emesis. He states the the abdominal pain is 6 out of 10 8 out of 10 and at its crescendo. Alleviating factors include flexion at the waist and exacerbating factors include movement. He denies any recent fever shakes or chills. Patient also denies any chest pain or shortness of breath or cough. ct showed possible sbo and pt was admitted with ivf and surg consult and pain meds Hospital Course Hospital Course: surgery consult- see note stool pos for c diff- vanc started Abnormal Labs 11/04/19 11/04/19 11/06/19 13:29 13:29 10:22 WBC 13.3 H RBC 4.50 L Hgb 13.8 L Hct 53.2 H 41.9 L Neut % (Auto) 91.0 H Lymph % (Auto) 5.3 L Neut # (Auto) 12.1 H Neutrophils % (Manual) 90 H Lymphocytes % (Manual) 5 L Anion Gap 16.9 H BUN 21 H Glucose 178 H Total Bilirubin 1.4 H Total Protein 8.5 H Albumin Globulin 3.8 H Stl C.difficile Tox PCR 11/06/19 11/06/19 10:22 14:45 WBC RBC Hgb Hct Neut % (Auto) Lymph % (Auto) Neut # (Auto) Neutrophils % (Manual) Lymphocytes % (Manual) Anion Gap BUN Glucose 110 H Total Bilirubin Total Protein 6.0 L D Albumin 3.3 L Globulin Stl C.difficile Tox PCR Detected A chest x ray-IMPRESSION: Chronic changes on the left with COPD otherwise negative ct abd/pelvis_IMPRESSION: 1. There is mild diffuse thickening of the small bowel consistent with enteritis. 2. There is mild dilatation of the small bowel in the mid upper abdomen with air-fluid levels and a suspected transition point in the left lower quadrant where there is focal small bowel wall thickening. Partial obstruction is considered. Repeat exam with both IV and oral contrast may provide further evaluation. The 3. Bilateral nephrolithiasis abd x ray- IMPRESSION: Mildly distended small bowel with a few air-fluid levels suggesting enteritis/ileus or partial small bowel obstruction which has shown some improvemen pt will be dc home on oral vanc for c-diff, contact precautions discussed with pt follow up with surgery Objective Vital signs: Temp Pulse Resp BP Pulse Ox 98.2 F 65 16 167/80 H 96 11/07/19 08:00 11/07/19 08:00 11/07/19 08:00 11/07/19 08:00 11/07/19 08:00 no acute distress - *Routine HEENT Exam Head: Present: normocephalic Eye: Present: PERRL ENT: Present: mucous membranes moist - *Routine Neck Exam Present: supple - *Routine Respiratory Exam Present: CTA bilaterally - *Routine Cardiovascular Exam Present: RRR - *Routine Abdominal Exam Present: soft, normoactive bowel sounds, tenderness - *Routine Extremities Exam Absent: cyanosis, clubbing, edema - *Routine Skin Exam Present: warm. Absent: rash - *Routine Neurological Exam Present: alert, oriented X3 - Routine Psychiatric Exam Present: normal affect Results Labs on day of discharge: Labs from last 24 hours 11/06/19 11/06/19 11/06/19 14:45 10:22 10:22 WBC 6.8 D RBC 4.50 L Hgb 13.8 L Hct 41.9 L MCV 93.2 MCH 30.7 MCHC 32.9 RDW 13.3 Plt Count 237 MPV 7.7 Neut % (Auto) 73.0 Lymph % (Auto) 19.9 [place] % (Auto) 5.6 Eos % (Auto) 1.0 Baso % (Auto) 0.5 Neut # (Auto) 5.0 Lymph # (Auto) 1.4 [place] # (Auto) 0.4 Eos # (Auto) 0.1 Baso # (Auto) 0.0 Sodium 136 Potassium 3.7 Chloride 104 Carbon Dioxide 26 Anion Gap 9.7 BUN 13 D Creatinine 0.90 Estimated Creat Clear 117 Estimated GFR 86 Est GFR ( Amer) 104 Glucose 110 H Calcium 8.4 D Total Bilirubin 0.7 AST 29 ALT 22 D Alkaline Phosphatase 56 Total Protein 6.0 L D Albumin 3.3 L Globulin 2.7 Albumin/Globulin Ratio 1.2 Stl Aeromonas (PCR) Not detected Stl C. cayetanensis PCR Not detected Stool Rotavirus (PCR) Not detected Stl Adenov F 40/41 PCR Not detected Stool Astrovirus (PCR) Not detected Stool Campylobacter PCR Not detected Stl C.difficile Tox PCR Detected A Stool Cryptosporidium PCR Not detected Stl E.coli Shiga Tox PCR Not detected Stool E coli O157 PCR Not detected Stl Enterotoxigenic E PCR Not detected Stool EPEC (PCR) Not detected Stool EAEC (PCR) Not detected Stl E. histolytica PCR Not detected Stool Giardia Lamblia PCR Not detected Stool Salmonella PCR Not detected Stool Sapovirus (PCR) Not detected Stl P. shigelloides PCR Not detected Stl Shigella/EIEC PCR Not detected St Y.enterocolitica PCR Not detected Stool Vibrio (PCR) Not detected Stl Vibrio cholerae PCR Not detected Stl Norovirus GI/GII PCR Not detected - Additional Comments rounded with dr matias all orders per dr matias DS: Diagnosis - Discharge Diagnosis (1) Small bowel obstruction Status: Acute (2) Tobacco abuse Status: Chronic (3) Enteritis Status: Acute Discharge Plan - Patient Discharge Instructions ACTIVITY: Continue current activity DIET: continue same diet Patient Instructions: Low-Fiber/Low-Residue Diet, DI for Small Bowel Obstruction, DI for Viral Gastroenteritis -- Adult - Follow up Plan Follow up with: Nate Matias MD [Staff Physician] - 1 week Anish Ramsay MD [Staff Physician] - 1 week Disposition: Home, Self-Nursing Home Medications: Home Medications Medication Instructions Recorded Confirmed Type metoprolol succinate 25 mg 25 mg PO DAILY #90 tab 03/28/19 11/04/19 Rx tablet,extended release 24 hr cholecalciferol (vitamin D3) 125 5,000 unit PO DAILY #90 cap 08/12/19 11/04/19 Rx mcg (5,000 unit) capsule Aspirin [Low Dose Aspirin EC] 81 mg PO DAILY 11/04/19 11/04/19 History Losartan Potassium [Cozaar 100mg 100 mg PO DAILY 11/04/19 11/04/19 History Tablets] hydroCHLOROthiazide [HCTZ 25mg 25 mg PO DAILY 11/04/19 11/04/19 History tab] Vancomycin HCl 125 mg PO QID 10 Days #40 cap 11/07/19 Rx Prescriptions/Medication Reconciliation: New Vancomycin HCl 125 mg PO QID 10 Days #40 cap Continued metoprolol succinate 25 mg tablet,extended release 24 hr 25 mg PO DAILY #90 tab cholecalciferol (vitamin D3) 125 mcg (5,000 unit) capsule 5,000 unit PO DAILY #90 cap Aspirin [Low Dose Aspirin EC] 81 mg PO DAILY Losartan Potassium [Cozaar 100mg Tablets] 100 mg PO DAILY hydroCHLOROthiazide [HCTZ 25mg tab] 25 mg PO DAILY - Problem Reconciliation Problems Reviewed?: Yes
== END 2019-11-07 13:33 | disposition home or self-care (01) | DRG 392 ==
LOC: 2ND 12:51 → ER 12:51 → 2ND 16:36
PROVIDERS: ADMIT Emergency Medicine; ATTEND Emergency Medicine
CPT/HCPCS: 36415; 71010; 71045; 74019; 74020; 74177; 80053; 82150; 83690; 84484; 85007; 85025; 87507; 93005; 96365; 96367; 96375; 96376; 99284; G0378; J1956; J2405; J3370; Q9967

== ENCOUNTER → 2020-01-29 10:02 | Outpatient (CLI) | payer MEDICAID, SELFPAY | PROVIDERS: PCP Nurse Practitioner Family; Visit Provider Nurse Practitioner Family | DX: R06.02 Shortness of breath (principal) | CPT/HCPCS: 94060; 94618; 94726; 94729 ==

== ENCOUNTER 2020-03-30 19:08 | Observation (INO) | payer MEDICAID, SELFPAY ==
[2020-03-30] VITALS (9 sets, daily range): BP systolic 135–218; BP diastolic 86–135; PULSE 68–91; RESP 16–18; TEMP 37.2; O2SAT 95–98; BMI 31.4; BMI 28.8
--- NOTE | 2020-03-30 19:37 | CT_ITS ---
PROCEDURE: CT ABDOMEN PELVIS W CON CLINICAL INDICATION: generalized abd. pain Generalized abdominal pain with nausea vomiting and diarrhea COMPARISON: CT CT ABDOMEN PELVIS W CON from 11/04/2019 TECHNIQUE: IV Contrast: 75ML OPTIRAY 350 Oral Contrast None Axial images obtained with sagittal and coronal reformats. All CT scans at the facility use one or more dose reduction, viz: automated exposure control, ma/kV adjustment per patient size (including targeted exams where dose is matched to indication, i.e. head), or iterative reconstruction technique. FINDINGS: LOWER THORAX: Pleural parenchymal scarring noted in the left lower lobe. Coronary artery calcification ABDOMEN & PELVIS: Noted. Liver, gallbladder, spleen, adrenal glands, have an unremarkable appearance. There are few punctate calcifications of the pancreas in the pancreatic head region nonspecific. There are nonobstructing bilateral renal calculi measuring 2 mm in the lower pole on the right and 4 mm in the upper pole on the left. No ureteral calculi evident. Exophytic isodense the projects off the lower pole of the left kidney consistent with a cyst at 12 mm. The appendix is not clearly delineated. There is history of appendectomy. Oral contrast was utilized as well. Dilated loops of small bowel are present in the mid and lower abdomen. There is questionable small bowel wall thickening in the right mid abdomen image 62 series 3. This could also be due to nondistention. Cannot exclude the possibility of a partial small bowel obstruction. There is mild amount of gas and stool in the colon. Scattered small nodes are present in the retroperitoneum. No acute bony findings. IMPRESSION: 1. Dilated small bowel loops with questionable area of small-bowel wall thickening in the right mid abdomen. Partial small bowel obstruction is considered. Small-bowel follow-through or CT enterography may provide further evaluation 2. Nonspecific punctate calcifications in the head of the pancreas which could be related to mild chronic pancreatitis. Dictated by: Preston Mc MD 03/31/2020 06:18 Preston Mc MD in [facility] 03/31/2020 06:18
[2020-03-30 19:48] LABS: Microscopic, Urine URINE MICROSCOPIC (MICROSCOPIC)
[2020-03-30 19:52] LABS: Appearance,Urine CLEAR (Clear); Blood, Urine 1+ (Negative); Glucose,Urine (UA) Negative (Negative); Ketones,Urine Negative (Negative); Leukocyte Esterase,Urine Negative (Negative); Nitrate,Urine Negative (Negative); PH,Urine 5.5 (5.0-8.5); Protein,Urine 1+ (Negative); Specific Gravity, Urine >= 1.030 (1.005-1.030); Urobilinogen,Urine 0.2 EU/dl (0.2)
[2020-03-30 19:56] LABS: Basophils % 0.4 % (0.1-2.0); Eosinophils # 0.1 K/mm3 (0.0-0.4); Eosinophils % 0.8 % (0.1-12.0); Hematocrit 54.4 % (42.0-52.0); Lymphocytes # 1.9 K/mm3 (0.7-4.5); Lymphocytes % 23.6 % (10-50); Mean Corpuscular HGB Conc 34.1 g/dL (31.8-35.4); Mean Corpuscular Hemoglobin 31.2 pg (27.0-31.2); Mean Corpuscular Volume 91.5 fl (80-94); Mean Platelet Volume 7.7 fl (7.4-10.4); Monocytes # 1.1 K/mm3 (0.1-1.0); Neutrophils # 4.8 K/mm3 (1.8-7.8); Neutrophils % 61.1 % (37.0-80.0); Platelet Count 241 K/mm3 (142-424); Red Blood Count 5.94 M/mm3 (4.60-6.20); Red Cell Distribution Width 13.8 % (11.5-17.5); White Blood Count 7.8 K/mm3 (4.8-10.8)
[2020-03-30 19:59] LABS: Chloride 89 mmol/L (98-107); Potassium 3.7 mmoL/L (3.5-5.1); Sodium 137 mmol/L (136-145)
[2020-03-30 20:01] LABS: Amylase 49 U/L (30-110); Blood Urea Nitrogen 45 mg/dl (9-20); Creatinine Clearance Estimated 63 mL/min (50-200); Estimated Glomerular Filt Rate 39 ml/min (>60); GFR (African American) 47 ML/MIN (>60)
--- NOTE | 2020-03-30 20:01 | PC.NURSE ---
pt finished oral contrast. RAD notified
[2020-03-30 20:02] LABS: Alanine Aminotransferase 42 U/L (12-78); Albumin Level 4.7 g/dl (3.5-5.0); Albumin/Globulin Ratio 1.2 (1.1-1.8); Alkaline Phosphatase 74 U/L (38-126); Anion Gap 18.7 mEq/L (5-15); Aspartate Amino Transferase 33 U/L (17-59); Bilirubin,Total 1.3 mg/dl (0.2-1.3); Calcium 9.8 mg/dl (8.4-10.2); Carbon Dioxide 33 mmol/L (22.0-30.0); Globulin 3.8 g/dL (1.3-3.2); Glucose 126 mg/dl (74-100); Lipase 35 U/L (23-300); Total Protein,Serum 8.5 g/dl (6.3-8.2)
[2020-03-30 20:05] LABS: Lactic Acid 2.6 mmol/L (0.7-2.1)
[2020-03-30 20:08] LABS: C-Reactive Protein 49.4 mg/L (0-4)
[2020-03-30 20:24] LABS: Erythrocyte Sedimentation Rate 14 mm/hr (0-20)
[2020-03-30 20:26] LABS: Bilirubin,Urine Negative (Negative); Color,Urine Dark Yellow (Yellow)
[2020-03-30 20:27] LABS: Bacteria,Urine Trace /lpf; RBC,Urine Occasional #/hpf (0-3); Squamous Epithelial Cell,Urine Occasional #/hpf (0-5); WBC,Urine Occasional #/hpf (0-3)
--- NOTE | 2020-03-30 20:27 | HMH.EDNVD ---
ED Disposition Clinical Impression: SBO (small bowel obstruction), HORACE (acute kidney injury), Tobacco abuse Obesity Qualifiers: Obesity type: due to excess calories Obesity classification: adult class 1 (BMI 30 - 34.9) Serious obesity comorbidity presence: with serious comorbidity Body mass index: BMI 31.0-31.9 Qualified Code(s): E66.09 - Other obesity due to excess calories; Z68.31 - Body mass index (BMI) 31.0-31.9, adult Disposition: Admitted As Inpatient Condition on Discharge: Fair Instructions: DI for Acute Abdomen Referrals: Maya Morrison APRN [Primary Care Provider] - - Critical Care Critical Care Time: No Attestation: On 03/30/20, the high probability of a clinically significant, sudden or life threatening deterioration of the following system(s) required my full and direct attention, intervention and personal management. The time I documented below is in addition to time spent performing reported procedures but includes the following listed in this critical care notation. Medical Decision Making - Medical Records Medical records reviewed: Yes: I reviewed the patient's medical records. - Linus Inquiry Pt receiving controlled substance: No Vital Signs: 03/30/20 19:09 03/30/20 19:46 03/30/20 20:23 Temperature 99.0 F Temperature Source Oral Pulse Rate [Left Radial] 88 91 H 68 Respiratory Rate 16 18 18 Blood Pressure [Right Arm] 208/121 H 183/132 H 218/135 H Blood Pressure Mean [Right Arm] 150 149 162 Blood Pressure Source [Right Arm] Automatic Cuff Blood Pressure Position [Right Arm] Sitting 02 Sat by Pulse Oximetry 98 95 96 Oxygen Delivery Method Room Air Room Air Room Air 03/30/20 21:05 03/30/20 21:51 03/30/20 22:06 Temperature Temperature Source Pulse Rate [Left Radial] 82 80 80 Respiratory Rate 18 18 18 Blood Pressure [Right Arm] 167/89 H 135/86 147/87 H Blood Pressure Mean [Right Arm] 115 102 107 Blood Pressure Source [Right Arm] Blood Pressure Position [Right Arm] 02 Sat by Pulse Oximetry 95 98 96 Oxygen Delivery Method Room Air Room Air Room Air - Lab Data Lab results reviewed: Yes: I reviewed the patient's lab results. Lab Results 03/30/20 19:20: Urine Color Dark yellow, Urine Appearance Clear, Urine pH 5.5, Ur Specific [place] >= 1.030, Urine Protein 1+, Urine Glucose (UA) Negative, Urine Ketones Negative, Urine Blood 1+, Urine Nitrate Negative, Urine Bilirubin Negative, Urine Urobilinogen 0.2, Ur Leukocyte Esterase Negative, Urine RBC Occasional, Urine WBC Occasional, Ur Squamous Epith Cells Occasional, Urine Bacteria Trace 03/30/20 19:43: WBC 7.8, RBC 5.94, Hgb 18.7 H*, Hct 54.4 H, MCV 91.5, MCH 31.2, MCHC 34.1, RDW 13.8, Plt Count 241, MPV 7.7, Neut % (Auto) 61.1, Lymph % (Auto) 23.6, [place] % (Auto) 14.0 H, Eos % (Auto) 0.8, Baso % (Auto) 0.4, Neut # (Auto) 4.8, Lymph # (Auto) 1.9, [place] # (Auto) 1.1 H, Eos # (Auto) 0.1, Baso # (Auto) 0.0, ESR 14 03/30/20 19:43: Sodium 137, Potassium 3.7, Chloride 89 L, Carbon Dioxide 33 H, Anion Gap 18.7 H, BUN 45 H, Creatinine 1.80 H, Estimated Creat Clear 63, Estimated GFR 39 L, Est GFR ( Amer) 47 L, Glucose 126 H, Calcium 9.8, Total Bilirubin 1.3, AST 33, ALT 42, Alkaline Phosphatase 74, C-Reactive Protein 49.4 H, Total Protein 8.5 H D, Albumin 4.7, Globulin 3.8 H, Albumin/Globulin Ratio 1.2, Amylase 49, Lipase 35 03/30/20 19:43: Lactate 2.6 H Result diagrams: 03/30/20 19:43 03/30/20 19:43 Orders (Tests/Meds): ED MEDICATIONS Generic Name Dose Route Start Last Admin Trade Name Freq PRN Reason Stop Dose Admin Sodium Chloride 1,000 mls @ 999 mls/hr 03/30/20 19:45 03/30/20 19:50 Sod Chlor 0.9% 1000ml Bag IV 03/30/20 20:45 999 mls/hr .Q1H1M RAGINI Administration Sodium Chloride 8 ml 03/30/20 19:47 Sodium Chloride 0.9% 10ml Vial IV 04/29/20 19:46 NEEDED PRN dilute pepcid Discontinued Medications Generic Name Dose Route Start Last Admin Trade Name Freq PRN Reason Stop Dose Admin
[2020-03-30 20:28] LABS: Hemoglobin 18.7 g/dL (14.1-18.0)
--- NOTE | 2020-03-30 22:31 | PC.NURSE ---
called and spoke with nicky; room 204,acute, 1. sbo 2 cheryl; florencio for florencio
[2020-03-30 23:50] LABS: Reflex Lactic Add Lactic Reflex
[2020-03-31] VITALS (11 sets, daily range): BP systolic 129–179; BP diastolic 80–100; PULSE 58–68; RESP 14–19; TEMP 36.6–37.1; O2SAT 92–99; BMI 28.0; BMI 28.1
--- NOTE | 2020-03-31 00:17 | PC.NURSE ---
called and spoke with lab about pts COVID results. lab stated it would be about 15 minutes still untill resulted
[2020-03-31 00:31] LABS: Lactic Acid Follow Up (RFLX 1) 1.4 mmol/L (0.7-2.1)
--- NOTE | 2020-03-31 01:01 | PC.NURSE ---
called lab to check on COVID test again. stated they would check on it.
--- NOTE | 2020-03-31 01:25 | PC.NURSE ---
Pt arrived to the medical surgical floor at this time via w/c and accompanied by staff.
--- NOTE | 2020-03-31 04:34 | PC.NURSE ---
New admission this shift. Denies pain/soa at this time. Refuses bath. Has slept soundly since RN finished admission questioning.
--- NOTE | 2020-03-31 07:16 | P.CONPHA_ITS ---
[facility] Pharmacy VTE Monitoring - Patient Demographics Admission date: 03/31/20 Report Date: 03/31/20 Time: 07:17 Allergies/Adverse Reactions: Patient Allergies codeine [CODEINE] Allergy (Severe, Verified 02/04/20 14:13) [id number]/THROAT acetaminophen [From DARVOCET-N 100] Allergy (Mild, Verified 02/04/20 14:13) morphine [MORPHINE] Allergy (Mild, Verified 02/04/20 14:13) Penicillins Allergy (Mild, Verified 02/04/20 14:13) propoxyphene [From DARVOCET-N 100] Allergy (Mild, Verified 02/04/20 14:13) Height: 1.8 m Weight: 91.2 kg Patient Problems: Current Active Problems HORACE (acute kidney injury) (Acute) Small bowel obstruction (Acute) Tobacco abuse (Chronic) Obesity (Chronic) - VTE Risk Labs: VTE Related Lab Results Hgb 18.7 g/dL (14.1-18.0) H* 03/30/20 19:43 Hct 54.4 % (42.0-52.0) H 03/30/20 19:43 Plt Count 241 K/mm3 (142-424) 03/30/20 19:43 BUN 45 mg/dl (9-20) H 03/30/20 19:43 Creatinine 1.80 mg/dl (0.66-1.25) H 03/30/20 19:43 Estimated Creat Clear 63 mL/min (50-200) 03/30/20 19:43 Was VTE Risk Assessment Performed: Yes VTE Score: 3 VTE Risk Level: Low Risk Clinical Trial Participant: No - Prophylaxis VTE Prophylaxis Ordered?: Yes Types of VTE Prophylaxis: TEDS Knee High
--- NOTE | 2020-03-31 07:18 | HMH.PHAINT ---
Home medication reconciliation completed using list from [facility] pharmacy and pt interview
--- NOTE | 2020-03-31 07:39 | PC.NURSE ---
LATE ENTRY -719 DR. ASHRAF WAS NOTIFIED OF CONSULT.
[2020-03-31 07:45] LABS: Basophils % 0.4 % (0.1-2.0); Neutrophils # 4.4 K/mm3 (1.8-7.8); Red Cell Distribution Width 13.9 % (11.5-17.5)
[2020-03-31 07:47] LABS: Chloride 97 mmol/L (98-107); Potassium 3.3 mmoL/L (3.5-5.1); Sodium 135 mmol/L (136-145)
[2020-03-31 07:50] LABS: Blood Urea Nitrogen 40 mg/dl (9-20); Creatinine Clearance Estimated 78 mL/min (50-200); Estimated Glomerular Filt Rate 56 ml/min (>60); GFR (African American) 68 ML/MIN (>60)
[2020-03-31 07:51] LABS: Anion Gap 10.3 mEq/L (5-15); Carbon Dioxide 31 mmol/L (22.0-30.0); Glucose 90 mg/dl (74-100)
--- NOTE | 2020-03-31 07:54 | HMH.GSCON ---
*Admission Date: 03/31/20 *Reason for consult:: Possible partial small bowel obstruction *History of present illness: This is a 59-year-old gentleman seen in consultation from Dr. Victor after presenting to the emergency department with increasing abdominal pain. Over the past 3-4 days he has had intermittent pain that he describes as sharp and crampy . Location is variable but seemingly worse around the umbilicus. He has had associated nausea, vomiting, and diarrhea. He continues to have some diarrhea but states it is a little better now . With regard to his pain he states that he feels much better and the pain is pretty much gone right now . No fevers. No melena. No hematemesis. No bright red blood per rectum. He states that he has had similar episodes and also has a reported history of small bowel obstruction. Review of Systems - Constitutional Denies chills - Eyes Denies change in vision - ENT Denies difficulty swallowing - *Cardiovascular Denies chest pain - *Respiratory Denies cough - *Gastrointestinal Reports abdominal pain, Reports loose stools, Reports nausea - *Genitourinary Denies painful urination - *Musculoskeletal Denies tingling - Integumentary/Breasts Denies changing lesions - *Neurologic Denies localized weakness, Denies tingling/numbness/burning sensations - Psychiatric Denies anxiety - Endocrine Denies cold intolerance - Hematologic/Lymphatic Denies easy bleeding - Allergic/Immunologic Denies hives [facility] History Medical History: Reports:: Coronary Artery Disease, Gastroesophageal Reflux Disease(GERD), Hypertension Denies:: Cancer, Diabetes Mellitus Type 1, Diabetes Mellitus Type 2, Internal Pacemaker, Lung Disease, MRSA, Seizures *Have you ever received a pneumonia vaccine?: No *Have you received a flu vaccine this season?: No Other Medical History: Denies: Blood Transfusion Reaction Other Surgeries: Yes: No Previous Surgery, Appendectomy, Cholecystectomy, Colonoscopy, Other. No: Pacemaker Amputation: No Fractures: Yes - *Social History Smoking Status: Current every day smoker Tobacco Type: cigarettes # Packs/Day (cigarettes): 1 #Yrs smoked (if former smoker): 20 Alcohol Intake: former Alcohol Intake Frequency:: other Substance Use Type: marijuana Last Used Substance: days (ago) *Occupational Status:: disabled Housing: other Household Members: significant other *Travel in the last 8 weeks: None Family Hx:: Coronary Artery Disease, Diabetes, Hypertension Meds Home Medications Medication Instructions Recorded Confirmed Type Aspirin [Low Dose Aspirin EC] 81 mg PO DAILY 11/04/19 03/30/20 History Metoprolol Succinate [Metoprolol 25 mg PO DAILY 03/30/20 03/30/20 History Succinate 25mg Tablet*] hydroCHLOROthiazide [HCTZ 25mg 25 mg PO DAILY 03/30/20 03/30/20 History tab] Losartan Potassium [Cozaar 100mg 100 mg PO DAILY 03/31/20 03/31/20 History Tablets] Allergies Allergy/AdvReac Type Severity Reaction Status Date / Time codeine [CODEINE] Allergy Severe S-SWELLS-OR Verified 02/04/20 14:13 AL/THROAT acetaminophen Allergy Mild Unknown Verified 03/31/20 07:43 [From DARVOCET-N 100] allergy reaction morphine [MORPHINE] Allergy Mild Unknown Verified 03/31/20 07:43 allergy reaction Penicillins Allergy Mild Unknown Verified 03/31/20 07:43 allergy reaction propoxyphene Allergy Mild Unknown Verified 03/31/20 07:43 [From DARVOCET-N 100] allergy reaction Exam Vital signs and Labs for Last 24 Hours: Temp Pulse Resp BP Pulse Ox 98.4 F 58 L 14 151/94 H 93 L 03/31/20 03:56 03/31/20 03:56 03/31/20 03:56 03/31/20 03:56 03/31/20 03:56 Laboratory Results - last 24 hr 03/30/20 19:20: Urine Color Dark yellow, Urine Appearance Clear, Urine pH 5.5, Ur Specific [place] >= 1.030, Urine Protein 1+, Urine Glucose (UA) Negative, Urine Ketones Negative, Urine Blood 1+, Urine Nitrate Negative, Urine B
[2020-03-31 07:56] LABS: Eosinophils # 0.1 K/mm3 (0.0-0.4); Lymphocytes # 1.6 K/mm3 (0.7-4.5); Lymphocytes % 23.6 % (10-50); Mean Corpuscular Hemoglobin 31.8 pg (27.0-31.2); Mean Corpuscular Volume 90.9 fl (80-94); Mean Platelet Volume 7.7 fl (7.4-10.4); Monocytes # 0.7 K/mm3 (0.1-1.0); Monocytes % 9.8 % (1.7-9.3); Neutrophils % 64.2 % (37.0-80.0); Platelet Count 225 K/mm3 (142-424); Red Blood Count 4.95 M/mm3 (4.60-6.20); White Blood Count 6.9 K/mm3 (4.8-10.8)
[2020-03-31 07:59] LABS: Hemoglobin 15.7 g/dL (14.1-18.0)
[2020-03-31 08:01] LABS: Calcium 8.5 mg/dl (8.4-10.2)
--- NOTE | 2020-03-31 08:36 | HMH.HP ---
*Admission Date: 03/31/20 *Chief complaint: Abd Pain *History of present illness: 59-year-old male patient presented to ER after 3 to 4 days of abdominal pain, nausea, vomiting, and diarrhea. He reports a sharp, twisting, got wrenching pain in his umbilicus area, he denies eating any any new or questionable food prior to incidents. He reports he would have came to the hospital earlier but due to no car and no phone he was unable to contact anyone. He reports this morning his pain has subsided, abdomen is soft, bowel sounds are active, and no pain with palpation. He also reports several episodes of loose stool during the night and that he is passing gas. Informed him we will advance diet to clear liquids and see if this is tolerated before continuing on with further testing, this was explained to him and he is agreeable. General surgery was consulted Gen Surg has seen and rec: Changes on CT likely secondary to enteritis. The patient continues to have diarrhea. He continues to pass flatus. 1) continue serial abdominal exams 2) Limited clear liquid trial 3) ...as findings are more consistent with enteritis as opposed to true obstruction and considering improvement over the past few hours... I recommend holding off on further radiographic evaluation (such as small bowel follow-through or CT enterography). If the patient does not continue to improve, evaluation to include at least one of these modalities will be ongoing. 03/30/20 Abd/Pelvic CT: MPRESSION: 1. Dilated small bowel loops with questionable area of small-bowel wall thickening in the right mid abdomen. Partial small bowel obstruction is considered. Small-bowel follow-through or CT enterography may provide further evaluation 2. Nonspecific punctate calcifications in the head of the pancreas which could be related to mild chronic pancreatitis. Dictated by: ROGERIO Mc History Medical History: Reports:: Coronary Artery Disease, Gastroesophageal Reflux Disease(GERD), Hypertension Denies:: Cancer, Diabetes Mellitus Type 1, Diabetes Mellitus Type 2, Internal Pacemaker, Lung Disease, MRSA, Seizures *Have you ever received a pneumonia vaccine?: No *Have you received a flu vaccine this season?: No Other Medical History: Denies: Blood Transfusion Reaction Other Surgeries: Yes: No Previous Surgery, Appendectomy, Cholecystectomy, Colonoscopy, Other. No: Pacemaker Amputation: No Fractures: Yes - *Social History Smoking Status: Current every day smoker Tobacco Type: cigarettes # Packs/Day (cigarettes): 1 #Yrs smoked (if former smoker): 20 Alcohol Intake: former Alcohol Intake Frequency:: other Substance Use Type: marijuana Last Used Substance: days (ago) *Occupational Status:: disabled Housing: other Household Members: significant other *Travel in the last 8 weeks: None Family Hx:: Coronary Artery Disease, Diabetes, Hypertension Review of Systems - Review of Systems Review of systems:: pertinent systems reviewed and negative unless documented below - Constitutional Reports fatigue, Denies body ache(s), Denies chills - Eyes Denies change in vision, Denies pain - ENT Denies dizziness, Denies sinus pain - *Cardiovascular Denies chest pain, Denies shortness of breath with activity - *Respiratory Denies chest congestion, Denies cough - *Gastrointestinal Reports abdominal pain, Reports change in bowel habits, Reports change in stools, Reports loose stools - *Genitourinary Denies difficulty urinating, Denies painful urination - *Musculoskeletal Denies body aches, Denies numbness - Integumentary/Breasts Denies non-healing lesions - *Neurologic Denies localized weakness, Denies tingling/numbness/burning sensations, Denies tingling - Endocrine Denies cold intolerance, Denies heat intolerance - Hematologic/Lymphatic Denies easy bleeding, Denies easy bruising - Allergic/Immunologic Denies throat swelling, Denies tongue swelling Meds Home Medications
--- OUTSIDE RECORDS SUMMARY | 2020-03-31 10:45 | XMS_ITS | Continuity of Care Document ---
:1960 Author Organization [facility] Address [address] [place] [address] Phone Care Team Providers Name Role Phone Edith Primary Care Provider Edith Attending Provider Edith Primary Care Provider Edith Attending Provider Tamiko Primary Care Provider Ya Victor Attending Provider Allergies, Adverse Reactions, Alerts Allergen Type Severity Reaction Last Verified Status Updated codeine Allergy Severe [id number] February 03, Yes Active L/THROAT 2019 2:13pm acetaminophen Allergy Mild February 03, Yes Activ e 2020 2:13pm morphine Allergy Mild February 03, Yes Active 2020 2:13pm
--- NOTE | 2020-03-31 13:31 | PC.NURSE ---
Pt alert and oriented and able to make needs known. Has had no c/o thus far this shift and has tolerated clear liquid diet so far well. Report given to Celia Johnston RN. CB in reach. VSS.
--- NOTE | 2020-03-31 17:20 | PC.NURSE ---
THIS RN TOOK OVER CARE AT 1300. PATIENT HAS HAD NO COMPLAINTS OF PAIN. THIS RN HAS INQUIRED AT EACH ADL CHECK. NO CONCERNS AT THIS TIME.
--- NOTE | 2020-03-31 23:37 | PC.NURSE ---
He is A&Ox4. He reports that he had 3 loose stools on previous shift. No BM thus far this shift. He is on contact enteric precautions until a stool is obtained. He has been educated on the need for the stool sample and the reasoning for the contact enteric precautions and he verbalizes understanding. He reports that he ambulates independently and turns and repositions himself independently in bed. He received PRN pain medication for abdominal pain of which he rated a 6/10. He was also educated that as a fall risk he should call for help after receiving pain medication and he verbalized understanding.
[2020-04-01 01:56] LABS: Adenovirus F 40/41, stool Not Detected (NotDetected); Astrovirus Not Detected (NotDetected); Campylobacter Not Detected (NotDetected); Clostridium Difficile A/B, PCR Not Detected (NotDetected); Cryptosporidium Not Detected (NotDetected); Cyclospora Cayetanesis Not Detected (NotDetected); Entamoeba histolytica Not Detected (NotDetected); Enteroaggregative E coli Not Detected (NotDetected); Enterotoxigenic E coli Not Detected (NotDetected); Giardia lamblia Not Detected (NotDetected); Norovirus Not Detected (NotDetected); Rotavirus A Not Detected (NotDetected); Salmonella, PCR Not Detected (NotDetected); Sapovirus Not Detected (NotDetected); Shiga-like toxin E coli Not Detected (NotDetected); Shigella Enterovasive E coli Not Detected (NotDetected); Vibrio Cholerae Not Detected (NotDetected); Vibrio, PCR Not Detected (NotDetected); Yersinia Entercolitica, PCR Not Detected (NotDetected)
[2020-04-01 03:48] VITALS: BP 197/76; PULSE 56; RESP 18; TEMP 36.9; O2SAT 97
[2020-04-01 04:11] LABS: Enteropathogenic E coli Detected (NotDetected); Plesimonas Shigalloides, PCR Detected (NotDetected)
[2020-04-01 05:05] VITALS: BMI 29.3
--- NOTE | 2020-04-01 07:12 | P.PN_ITS ---
Subjective Patient reports: feels better Progress Note: A&P (1) Small bowel obstruction Status: Ruled-out Current Visit: Yes (2) Enteritis Status: Acute Assessment and plan: EPAC/Shigelloides noted on stool studies as per primary service Current Visit: No (3) Nausea vomiting and diarrhea Status: Acute Current Visit: Yes (4) COPD (chronic obstructive pulmonary disease) Status: Acute Current Visit: No (5) Tobacco abuse Status: Chronic Current Visit: Yes (6) CAD (coronary artery disease) Status: Chronic Current Visit: No Exam Vital signs and Labs for Last 24 Hours: Temp Pulse Resp BP Pulse Ox 98.4 F 56 L 18 197/76 H 97 04/01/20 03:48 04/01/20 03:48 04/01/20 03:48 04/01/20 03:48 04/01/20 03:48 Laboratory Results - last 24 hr 03/31/20 07:20: WBC 6.9, RBC 4.95, Hgb 15.7 D, Hct 45.0, MCV 90.9, MCH 31.8 H, MCHC 35.0, RDW 13.9, Plt Count 225, MPV 7.7, Neut % (Auto) 64.2, Lymph % (Auto) 23.6, [place] % (Auto) 9.8 H, Eos % (Auto) 2.0, Baso % (Auto) 0.4, Neut # (Auto) 4.4, Lymph # (Auto) 1.6, [place] # (Auto) 0.7, Eos # (Auto) 0.1, Baso # (Auto) 0.0 03/31/20 07:20: Sodium 135 L, Potassium 3.3 L, Chloride 97 L, Carbon Dioxide 31 H, Anion Gap 10.3, BUN 40 H, Creatinine 1.30 H D, Estimated Creat Clear 78, Estimated GFR 56 L, Est GFR ( Amer) 68 D, Glucose 90 D, Calcium 8.5 D 04/01/20 01:33: Stl Aeromonas (PCR) Not detected, Stl C. cayetanensis PCR Not detected, Stool Rotavirus (PCR) Not detected, Stl Adenov F 40/41 PCR Not detected, Stool Astrovirus (PCR) Not detected, Stool Campylobacter PCR Not detected, Stl C.difficile Tox PCR Not detected, Stool Cryptosporidium PCR Not detected, Stl E.coli Shiga Tox PCR Not detected, Stool E coli O157 PCR Not detected, Stl Enterotoxigenic E PCR Not detected, Stool EPEC (PCR) Detected A, Stool EAEC (PCR) Not detected, Stl E. histolytica PCR Not detected, Stool Giardia Lamblia PCR Not detected, Stool Salmonella PCR Not detected, Stool Sapovirus (PCR) Not detected, Stl P. shigelloides PCR Detected A, Stl Shigella/EIEC PCR Not detected, St Y.enterocolitica PCR Not detected, Stool Vibrio (PCR) Not detected, Stl Vibrio cholerae PCR Not detected, Stl Norovirus GI/GII PCR Not detected I & O for Last 24 hours: Intake & Output 03/29/20 03/30/20 03/31/20 04/01/20 11:59 11:59 11:59 11:59 Intake Total 280 / 280 3572 / 3572 Output Total 400 / 400 Balance 280 / 280 3172 / 3172 Weight 200 lb 9.93 oz 209 lb 12.8 oz Microbiology Reports for the Last 24 Hours: Stool studies positive for EPAC and shigelloides - Constitutional no acute distress - *Routine Respiratory Exam Absent: respiratory distress - *Routine Neurological Exam Present: alert - Routine Psychiatric Exam Present: normal affect
[2020-04-01 07:36] VITALS: BP 158/80; PULSE 58; RESP 18; TEMP 37.7; O2SAT 94
--- NOTE | 2020-04-01 09:10 | HMH.DCSUM ---
General - General Admission date:: 03/31/20 Discharge date: 04/01/20 HPI HPI: 59-year-old male patient presented to ER after 3 to 4 days of abdominal pain, nausea, vomiting, and diarrhea. He reports a sharp, twisting, got wrenching pain in his umbilicus area, he denies eating any any new or questionable food prior to incidents. He reports he would have came to the hospital earlier but due to no car and no phone he was unable to contact anyone. He reports this morning his pain has subsided, abdomen is soft, bowel sounds are active, and no pain with palpation. He also reports several episodes of loose stool during the night and that he is passing gas. Informed him we will advance diet to clear liquids and see if this is tolerated before continuing on with further testing, this was explained to him and he is agreeable. General surgery was consulted Gen Surg has seen and rec: Changes on CT likely secondary to enteritis. The patient continues to have diarrhea. He continues to pass flatus. 1) continue serial abdominal exams 2) Limited clear liquid trial 3) ...as findings are more consistent with enteritis as opposed to true obstruction and considering improvement over the past few hours... I recommend holding off on further radiographic evaluation (such as small bowel follow-through or CT enterography). If the patient does not continue to improve, evaluation to include at least one of these modalities will be ongoing. 03/30/20 Abd/Pelvic CT: MPRESSION: 1. Dilated small bowel loops with questionable area of small-bowel wall thickening in the right mid abdomen. Partial small bowel obstruction is considered. Small-bowel follow-through or CT enterography may provide further evaluation 2. Nonspecific punctate calcifications in the head of the pancreas which could be related to mild chronic pancreatitis. Dictated by: Alexandro, Hospital Course Hospital Course: Laboratory Tests 03/30/20 03/30/20 03/30/20 19:20 19:43 19:43 WBC 7.8 RBC 5.94 Hgb 18.7 H* Hct 54.4 H MCV 91.5 MCH 31.2 MCHC 34.1 RDW 13.8 Plt Count 241 MPV 7.7 Neut % (Auto) 61.1 Lymph % (Auto) 23.6 Real % (Auto) 14.0 H Eos % (Auto) 0.8 Baso % (Auto) 0.4 Neut # (Auto) 4.8 Lymph # (Auto) 1.9 Real # (Auto) 1.1 H Eos # (Auto) 0.1 Baso # (Auto) 0.0 ESR 14 Sodium 137 Potassium 3.7 Chloride 89 L Carbon Dioxide 33 H Anion Gap 18.7 H BUN 45 H Creatinine 1.80 H Estimated Creat Clear 63 Estimated GFR 39 L Est GFR ( Amer) 47 L Glucose 126 H Lactate Calcium 9.8 Total Bilirubin 1.3 AST 33 ALT 42 Alkaline Phosphatase 74 C-Reactive Protein 49.4 H Total Protein 8.5 H D Albumin 4.7 Globulin 3.8 H Albumin/Globulin Ratio 1.2 Amylase 49 Lipase 35 Urine Color Dark yellow Urine Appearance Clear Urine pH 5.5 Ur Specific [place] >= 1.030 Urine Protein 1+ Urine Glucose (UA) Negative Urine Ketones Negative Urine Blood 1+ Urine Nitrate Negative Urine Bilirubin Negative Urine Urobilinogen 0.2 Ur Leukocyte Esterase Negative Urine RBC Occasional Urine WBC Occasional Ur Squamous Epith Cells Occasional Urine Bacteria Trace Stl Aeromonas (PCR) Stl C. cayetanensis PCR Stool Rotavirus (PCR) Stl Adenov F 40/41 PCR Stool Astrovirus (PCR) Stool Campylobacter PCR Stl C.difficile Tox PCR Stool Cryptosporidium PCR Stl E.coli Shiga Tox PCR Stool E coli O157 PCR Stl Enterotoxigenic E PCR Stool EPEC (PCR) Stool EAEC (PCR) Stl E. histolytica PCR Stool Giardia Lamblia PCR Stool Salmonella PCR Stool Sapovirus (PCR) Stl P. shigelloides PCR Stl Shigella/EIEC PCR St Y.enterocolitica PCR Stool Vibrio (PCR) Stl Vibrio cholerae PCR Stl Norovirus GI/GII PCR 03/30/20 03/31/20 03/31/20 19:43 00:06 07:20 WB
--- NOTE | 2020-04-01 10:03 | SW/DCPLANNER ---
Addendum entered by Rama Noonan 04/01/20 14:08: FTSB has been arranged for transportation home for this patient. Original Note: I have spoke with this patient regarding discharge plans. Patient stated that he resides at home with his girlfriend (currently in rehab) and his dogs. Patient stated that he resides in a trailer that he has recently cleaned/fixed up and has running water and electric. Patient stated that he has no needs at home at this time. Patient stated that he is attempting to set up a ride home with his sister for today. I have informed patient that if she can not transport to please let us know and we can assist with transportation (FTSB). Patient stated that he will also be able to get his medications today. Patient will discharge home later today.
--- NOTE | 2020-04-01 11:11 | HMH.PHAINT ---
DISCHARGE COUNSELING COMPLETED ON PATIENT. NEW PRESCRIPTION FOR CIPROFLOXACIN 750MG BID FOR 3 DAYS. PATIENT IS TO CONTINUE ALL OTHER HOME MEDICATIONS. PATIENT REQUESTED HIS REGULAR MEDICATIONS BE TRANSFERRED FROM [facility] TO CLINIC PHARMACY. CALLED AND SPOKE TO MARSHALL ABOUT THIS. PATIENT VERBALIZED UNDERSTANDING AND HAD NO QUESTIONS AT THIS TIME. -CHANA ZIMMERMAN, MARY LOUD
--- NOTE | 2020-04-01 15:14 | PC.NURSE ---
PATIENT LEFT FLOOR VIA AMBULATORY. RIDE PROVIDED BY [employer] SYSTEM. PATIENT A&O X4, LUNGS CLEAR, NO COMPLAINT OF PAIN. NO OTHER CONCERNS AT THIS TIME.
== END 2020-04-01 15:11 | disposition home or self-care (01) ==
LOC: ER 22:31 → 2ND 22:36
PROVIDERS: Surgery; Admitting Provider Emergency Medicine; Emergency Provider Emergency Medicine; PCP Nurse Practitioner Family; Visit Provider Emergency Medicine
DX: A04.0 Enteropathogenic Escherichia coli infection (principal); A03.9 Shigellosis, unspecified; Z72.0 Tobacco use; I25.10 Atherosclerotic heart disease of native coronary artery without angina pectoris; I10 Essential (primary) hypertension; Z79.899 Other long term (current) drug therapy; Z79.52 Long term (current) use of systemic steroids; Z88.0 Allergy status to penicillin; Z88.5 Allergy status to narcotic agent; Z88.8 Allergy status to other drugs, medicaments and biological substances
CPT/HCPCS: 36415; 74177; 80048; 80053; 81001; 82150; 83605; 83690; 85025; 85651; 86140; 87040; 87506; 96365; 96375; 99285; G0378; J2405; Q9967; U0003

== ENCOUNTER 2021-02-22 07:40 | Observation (INO) | payer MEDICAID, SELFPAY ==
[2021-02-22] VITALS (10 sets, daily range): BP systolic 174–220; BP diastolic 86–120; PULSE 55–95; RESP 16–18; TEMP 36.6–37; O2SAT 95–99; BMI 31.4; BMI 29.9
[2021-02-22 08:07] LABS: Basophils % 0.3 % (0.1-2.0); Eosinophils # 0.1 K/mm3 (0.0-0.4); Eosinophils % 0.7 % (0.1-12.0); Hematocrit 44.9 % (42.0-52.0); Hemoglobin 15.6 g/dL (14.1-18.0); Lymphocytes # 1.4 K/mm3 (0.7-4.5); Lymphocytes % 13.5 % (10-50); Mean Corpuscular HGB Conc 34.7 g/dL (31.8-35.4); Mean Corpuscular Hemoglobin 31.2 pg (27.0-31.2); Mean Corpuscular Volume 90.1 fl (80-94); Mean Platelet Volume 9.1 fl (7.4-10.4); Monocytes # 0.7 K/mm3 (0.1-1.0); Monocytes % 7.2 % (1.7-9.3); Neutrophils # 8.1 K/mm3 (1.8-7.8); Neutrophils % 78.3 % (37.0-80.0); Platelet Count 236 K/mm3 (142-424); Red Blood Count 4.99 M/mm3 (4.60-6.20); White Blood Count 10.3 K/mm3 (4.8-10.8)
--- NOTE | 2021-02-22 08:07 | HMH.EDGENADL ---
ED Disposition Clinical Impression: Enteritis, Hypertension, poor control Disposition: Admitted as Observation Condition on Discharge: Fair Referrals: Leland Ivory MD [Primary Care Provider] - - Critical Care Critical Care Time: No Attestation: On 02/22/21, the high probability of a clinically significant, sudden or life threatening deterioration of the following system(s) required my full and direct attention, intervention and personal management. The time I documented below is in addition to time spent performing reported procedures but includes the following listed in this critical care notation. Medical Decision Making - Medical Records Medical records reviewed: Yes: I reviewed the patient's medical records. MR Comment: This appears to be a recurrent scenario for the patient. He was admitted twice last year for the same symptoms. He had 2 CT scans that showed findings of enteritis and questionable partial small bowel obstruction. Reviewed surgical consult note from November [address] Pisano for same symptoms. He says that he had operated on him 8 years prior for the same symptoms and all that was found was thickened mucosa and bowel wall. - Linus Inquiry Pt receiving controlled substance: Yes Linus was queried for this patient: Yes Risks and benefits of using a controlled substance: were not discussed with pt by me Vital Signs: 02/22/21 07:40 02/22/21 07:45 02/22/21 08:01 Temperature 98.6 F Temperature Source Oral Pulse Rate 64 61 Pulse Rate [Right] 60 Respiratory Rate 18 Blood Pressure 177/86 H 174/88 H Blood Pressure [Right Arm] 212/109 H Blood Pressure Mean [Right Arm] 143 02 Sat by Pulse Oximetry 96 97 95 Oxygen Delivery Method Room Air 02/22/21 08:09 02/22/21 10:45 Temperature Temperature Source Pulse Rate 64 62 Pulse Rate [Right] Respiratory Rate 18 Blood Pressure 174/88 H 206/109 H Blood Pressure [Right Arm] Blood Pressure Mean [Right Arm] 02 Sat by Pulse Oximetry 97 95 Oxygen Delivery Method Room Air - Lab Data Lab Results 02/22/21 07:50: WBC 10.3, RBC 4.99, Hgb 15.6, Hct 44.9, MCV 90.1, MCH 31.2, MCHC 34.7, RDW 14.0, Plt Count 236, MPV 9.1, Neut % (Auto) 78.3, Lymph % (Auto) 13.5, Polk % (Auto) 7.2, Eos % (Auto) 0.7, Baso % (Auto) 0.3, Neut # (Auto) 8.1 H, Lymph # (Auto) 1.4, Polk # (Auto) 0.7, Eos # (Auto) 0.1, Baso # (Auto) 0.0 02/22/21 07:50: Lactate 1.3 02/22/21 08:14: Urine Color [place], Urine Appearance Clear, Urine pH 6.5, Ur Specific [place] 1.020, Urine Protein 2+, Urine Glucose (UA) Trace, Urine Ketones 1+, Urine Blood Negative, Urine Nitrate Negative, Urine Bilirubin 1+ A, Urine Urobilinogen 1.0, Ur Leukocyte Esterase Negative, Urine RBC None, Urine WBC None, Ur Squamous Epith Cells None, Urine Bacteria None 02/22/21 08:38: Sodium 139, Potassium 3.4 L, Chloride 99, Carbon Dioxide 30, Anion Gap 13.4, BUN 20, Creatinine 0.90, Estimated Creat Clear 112, Estimated GFR 86, Est GFR ( Amer) 104, Glucose 131 H, Calcium 8.8, Total Bilirubin 1.5 H, AST 30, ALT 35, Alkaline Phosphatase 80, Total Protein 7.6, Albumin 4.5, Globulin 3.1, Albumin/Globulin Ratio 1.5 02/22/21 08:38: Troponin I < 0.01, Lipase 35 02/22/21 08:38: Phosphorus 3.6 Result diagrams: 02/22/21 07:50 02/22/21 08:38 Orders (Tests/Meds): ED MEDICATIONS Generic Name Dose Route Start Last Admin Trade Name Freq PRN Reason Stop Dose Admin Sodium Chloride 8 ml 02/22/21 08:24 Sodium Chloride 0.9% 10ml Vial IV 03/24/21 08:23 NEEDED PRN dilute pepcid Discontinued Medications Generic Name Dose Route Start Last Admin Trade Name Freq PRN Reason Stop Dose Admin Famotidine 20 mg 02/22/21 08:24 02/22/21 08:52 Famotidine 20mg/2ml Vial IV 02/22/21 08:25 20 mg ONCE ONE Administration Hydromorphone HCl 0.5 mg 02/22/21 08:13 02/22/21 08:19 Hydromorphone 2mg/Ml Syringe IV 02/22/21 08:14 0.5 mg ONCE ONE Administration Iopamidol 75 ml
--- NOTE | 2021-02-22 08:14 | CT_ITS ---
PROCEDURE: CT ABDOMEN PELVIS W CON CLINICAL INDICATION: abdo pain, vomiting Mid abdominal pain with vomiting COMPARISON: CT CHESTWO CT chest wo con from 09/12/[address] ABDOMEN PELVIS W CON from 03/30/2020 TECHNIQUE: IV Contrast: 75ML Isovue 370 Oral Contrast None Axial images obtained with sagittal and coronal reformats. All CT scans at the facility use one or more dose reduction, viz: automated exposure control, ma/kV adjustment per patient size (including targeted exams where dose is matched to indication, i.e. head), or iterative reconstruction technique. FINDINGS: LOWER THORAX: There is an old sternal fracture with costochondral dislocations posteriorly of the right 5th 6 and 7th ribs at the costal sternal junction. Small lung herniation noted anteriorly at this region not significantly changed from 08/25/2018. There is some scarring in the left lung base posteriorly. Coronary artery calcifications are noted. ABDOMEN & PELVIS: Mild fatty liver. No focal liver lesion apparent. The spleen, adrenal glands, pancreas have an unremarkable appearance. There are nonobstructing bilateral renal calculi 5 mm in the lower pole on the left and 2 mm in the lower pole on the right. There are 2 small cortical cyst of the left kidney. There is thickening of the distal esophagus nonspecific. Unremarkable appearing gallbladder. The appendix is not clearly delineated. There is mild diffuse small bowel wall thickening with a few scattered air-fluid levels within the small bowel in the left upper quadrant with minimal distension. Colonic wall thickening also noted in the cecal area and proximal ascending colon. No evidence of proximal SMA or celiac stenosis. There is a eccentric soft plaque in the mid SFA causing approximately 40 narrowing. No evidence of pneumatosis. No evidence of portal venous gas. No free air apparent. The small bowel wall thickening and distension involves the jejunum. Proximal ileum has a normal appearance in the mid and distal ileum show diffuse thickening. No ascites No pelvic mass or abnormal fluid collection. There is colonic diverticulosis but no evidence of diverticulitis. Mild degenerative changes are present in the lumbar spine IMPRESSION: 1. Mild diffuse small bowel wall thickening proximally and in the mid and distal ileal region as well as bowel wall thickening of the cecum and ascending colon. Findings are compatible with enterocolitis. Ischemic changes would be included in the differential diagnosis. There is approximately 40 percent stenosis of the mid to distal SMA however, no distal occlusive changes or emboli apparent. 2. Colonic diverticulosis but no evidence of diverticulitis. 3. Bilateral nephrolithiasis Dictated by: Preston Mc MD 02/22/2021 10:35 Preston Mc MD in OV 02/22/2021 10:35
--- NOTE | 2021-02-22 08:41 | ECG_ITS ---
APPROVED REPORT Exam: Resting ECG HR:64 bpm ECG Measurements Heart Rate 64 AXES VT 192 P 41 QRSd 78 QRS 51 QT 450 T 52 QTc 464 Conclusion Normal sinus rhythm Nonspecific T wave abnormality Abnormal ECG Electronically signed by : Leland Ivory, 02/23/2021 21:39:17
[2021-02-22 09:03] LABS: Lipase 35 U/L (23-300)
[2021-02-22 09:04] LABS: Alanine Aminotransferase 35 U/L (12-78); Albumin Level 4.5 g/dl (3.5-5.0); Albumin/Globulin Ratio 1.5 (1.1-1.8); Alkaline Phosphatase 80 U/L (38-126); Anion Gap 13.4 mEq/L (5-15); Aspartate Amino Transferase 30 U/L (17-59); Bilirubin,Total 1.5 mg/dl (0.2-1.3); Blood Urea Nitrogen 20 mg/dl (9-20); Calcium 8.8 mg/dl (8.4-10.2); Carbon Dioxide 30 mmol/L (22.0-30.0); Chloride 99 mmol/L (98-107); Creatinine Clearance Estimated 112 mL/min (50-200); Estimated Glomerular Filt Rate 86 ml/min (>60); GFR (African American) 104 ML/MIN (>60); Globulin 3.1 g/dL (1.3-3.2); Glucose 131 mg/dl (74-100); Potassium 3.4 mmoL/L (3.5-5.1); Sodium 139 mmol/L (136-145); Total Protein,Serum 7.6 g/dl (6.3-8.2)
[2021-02-22 09:18] LABS: Troponin I < 0.01 ng/ml (0.00-0.034)
[2021-02-22 09:47] LABS: Microscopic, Urine URINE MICROSCOPIC (MICROSCOPIC)
[2021-02-22 10:00] LABS: Appearance,Urine CLEAR (Clear); Blood, Urine Negative (Negative); Color,Urine AMBER (Yellow); Glucose,Urine (UA) TRACE (Negative); Ketones,Urine 1+ (Negative); Leukocyte Esterase,Urine Negative (Negative); Nitrate,Urine Negative (Negative); PH,Urine 6.5 (5.0-8.5); Protein,Urine 2+ (Negative)
[2021-02-22 10:03] LABS: Bilirubin,Urine 1+ (Negative)
--- NOTE | 2021-02-22 10:09 | PC.NURSE ---
patient returned from radiology
--- NOTE | 2021-02-22 10:43 | PC.NURSE ---
notified lab of RENETTA SEPULVEDA adding on new orders, spoke with joe
[2021-02-22 10:55] LABS: Lactic Acid 1.3 mmol/L (0.7-2.1)
[2021-02-22 10:56] LABS: Coronavirus 19, PCR Not Detected (NotDetected); Influenza A, PCR Not Detected (NotDetected); Influenza B, PCR Not Detected (NotDetected)
[2021-02-22 11:05] LABS: Phosphorous 3.6 mg/dl (2.5-4.5)
--- NOTE | 2021-02-22 11:07 | PC.NURSE ---
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
--- NOTE | 2021-02-22 11:15 | PC.NURSE ---
RENETTA SEPULVEDA speaking with Dr. Acosta
--- NOTE | 2021-02-22 11:45 | PC.NURSE ---
Report called to Patito Patton RN at this time
--- NOTE | 2021-02-22 12:25 | P.CONPHA_ITS ---
[facility] Pharmacy VTE Monitoring - Patient Demographics Admission date: 02/22/21 Report Date: 02/22/21 Time: 12:25 Allergies/Adverse Reactions: Patient Allergies codeine [CODEINE] Allergy (Severe, Verified 04/06/20 10:05) [id number]/THROAT acetaminophen [From DARVOCET-N 100] Allergy (Mild, Verified 04/06/20 10:05) Unknown allergy reaction morphine [MORPHINE] Allergy (Mild, Verified 04/06/20 10:05) Unknown allergy reaction Penicillins Allergy (Mild, Verified 04/06/20 10:05) Unknown allergy reaction propoxyphene [From DARVOCET-N 100] Allergy (Mild, Verified 04/06/20 10:05) Unknown allergy reaction Height: 1.8 m Weight: 97.239 kg Patient Problems: Current Active Problems Hypertension, poor control (Acute) Enteritis (Acute) - VTE Risk Labs: VTE Related Lab Results Hgb 15.6 g/dL (14.1-18.0) 02/22/21 07:50 Hct 44.9 % (42.0-52.0) 02/22/21 07:50 Plt Count 236 K/mm3 (142-424) 02/22/21 07:50 BUN 20 mg/dl (9-20) 02/22/21 08:38 Creatinine 0.90 mg/dl (0.66-1.25) 02/22/21 08:38 Estimated Creat Clear 112 mL/min (50-200) 02/22/21 08:38 - Prophylaxis VTE Prophylaxis Ordered?: Yes Types of VTE Prophylaxis: TEDS Knee High Location of Applied Device: Bilateral Lower Extremeties
--- NOTE | 2021-02-22 13:45 | HMH.HP ---
*Admission Date: 02/22/21 *Chief complaint: nausea and vomiting [facility] History I have reviewed the patient's past medical history: Yes Medical History: Reports:: Coronary Artery Disease, Gastroesophageal Reflux Disease(GERD), Hyperlipidemia, Hypertension Denies:: Cancer, Diabetes Mellitus Type 1, Diabetes Mellitus Type 2, Internal Pacemaker, Lung Disease, MRSA, Seizures *Have you ever received a pneumonia vaccine?: No *Have you received a flu vaccine this season?: No Other Medical History: Denies: Blood Transfusion Reaction Other Surgeries: Yes: No Previous Surgery, Appendectomy, Cholecystectomy, Colonoscopy, Other. No: Pacemaker Amputation: No Fractures: Yes - *Social History Last grade of school completed: GED Smoking Status: Current every day smoker Tobacco Type: cigarettes # Packs/Day (cigarettes): 1 #Yrs smoked (if former smoker): 20 Alcohol Intake: never Alcohol Intake Frequency:: other Substance Use Type: marijuana *Occupational Status:: employed Housing: house Household Members: spouse *Travel in the last 8 weeks: None Family Hx:: Coronary Artery Disease, Diabetes, Hypertension Review of Systems - Review of Systems Review of systems:: pertinent systems reviewed and negative unless documented below (14 point review of systems performed, pertinent positives and negatives as per HPI) Meds Home Medications Medication Instructions Recorded Confirmed Type hydrochlorothiazide 25 mg tablet 25 mg PO DAILY #90 tab 08/12/20 02/22/21 Rx aspirin 81 mg tablet,delayed 81 mg PO DAILY #90 tab 11/03/20 02/22/21 Rx release losartan 100 mg tablet 100 mg PO DAILY #90 tab 12/07/20 02/22/21 Rx metoprolol succinate 25 mg 25 mg PO DAILY #90 tab 12/07/20 02/22/21 Rx tablet,extended release 24 hr Allergies Allergy/AdvReac Type Severity Reaction Status Date / Time codeine [CODEINE] Allergy Severe S-SWELLS-OR Verified 04/06/20 10:05 AL/THROAT acetaminophen Allergy Mild Unknown Verified 04/06/20 10:05 [From DARVOCET-N 100] allergy reaction morphine [MORPHINE] Allergy Mild Unknown Verified 04/06/20 10:05 allergy reaction Penicillins Allergy Mild Unknown Verified 04/06/20 10:05 allergy reaction propoxyphene Allergy Mild Unknown Verified 04/06/20 10:05 [From DARVOCET-N 100] allergy reaction Exam Vital signs and Labs for Last 24 Hours: Temp Pulse Resp BP Pulse Ox 98.5 F 95 H 17 210/90 H 96 02/22/21 11:58 02/22/21 11:58 02/22/21 11:58 02/22/21 11:58 02/22/21 11:58 Laboratory Results - last 24 hr 02/22/21 07:50: WBC 10.3, RBC 4.99, Hgb 15.6, Hct 44.9, MCV 90.1, MCH 31.2, MCHC 34.7, RDW 14.0, Plt Count 236, MPV 9.1, Neut % (Auto) 78.3, Lymph % (Auto) 13.5, [place] % (Auto) 7.2, Eos % (Auto) 0.7, Baso % (Auto) 0.3, Neut # (Auto) 8.1 H, Lymph # (Auto) 1.4, [place] # (Auto) 0.7, Eos # (Auto) 0.1, Baso # (Auto) 0.0 02/22/21 07:50: Lactate 1.3 02/22/21 08:14: Urine Color [place]oid[place], Urine Appearance Clear, Urine pH 6.5, Ur Specific [place] 1.020, Urine Protein 2+, Urine Glucose (UA) Trace, Urine Ketones 1+, Urine Blood Negative, Urine Nitrate Negative, Urine Bilirubin 1+ A, Urine Urobilinogen 1.0, Ur Leukocyte Esterase Negative, Urine RBC None, Urine WBC None, Ur Squamous Epith Cells None, Urine Bacteria None 02/22/21 08:38: Sodium 139, Potassium 3.4 L, Chloride 99, Carbon Dioxide 30, Anion Gap 13.4, BUN 20, Creatinine 0.90, Estimated Creat Clear 112, Estimated GFR 86, Est GFR ( Amer) 104, Glucose 131 H, Calcium 8.8, Total Bilirubin 1.5 H, AST 30, ALT 35, Alkaline Phosphatase 80, Total Protein 7.6, Albumin 4.5, Globulin 3.1, Albumin/Globulin Ratio 1.5 02/22/21 08:38: Troponin I < 0.01, Lipase 35 02/22/21 08:38: Phosphorus 3.6 02/22/21 10:50: SARS-CoV-2 (PCR) Not detected, Influenza A Untype (PCR) Not detected, Influenza Type B (PCR) Not detected I & O for Last 24 hours: Intake & Output 02/19/21 02/20/21 02/21/21 02/22/21 23:59 23:59 23:59 23:59 Weight 97.239 kg
--- NOTE | 2021-02-22 18:07 | PC.NURSE ---
PT IS RESTING IN BED. BP HAS BEEN ELEVATED SINCE ARRIVING TO THE HOSPITAL HOWEVER PT STATES THAT HE IS STILL HAVING SEVERE ABDOMINAL PAIN BUT IS NO LONGER NAUSEATED. ACCORDING TO PT THE ABDOMINAL PAIN WITH N/V HAS BEEN GOING ON FOR SEVERAL YEARS NOW. NOTIFIED ABOUT GETTING SOMETHING FOR PT'S PAIN AND HE ORDERED DILAUDID 1 MG Q3H AND ADDITIONAL BP MEDICATION. PT IS NOW COMFORTABLE HOWEVER BP CONTINUES TO BE ELEVATED 210/108 EVEN AFTER ADDITIONAL DOSE OF MEDICATION. ACCORDING TO PT THIS EPISODE WITH VOMITING STARTED 3 DAYS AGO AND HE HAS BEEN UNABLE TO TAKE ANY MEDICATIONS AT HOME. WHEN TALKING TO HE STATED PT HAS BEEN SEEN BY JIMI VERMA AND CHIP YOU IN THE PAST AND WANTED US TO CALL [facility] TO SEE IF THEY WOULD SEE PT. NOTIFIED [facility] OFFICE AND NURSE JOE BARRIOS STATED THEY HAVE SEEN PT IN THE PAST AND THEY WOULD BE OKAY WITH TAKING CARE OF PT WHILE HE IS IN THE HOSPITAL. ADMISSIONS NOTIFIED. PT HAS BEEN TOLERATING CLEAR LIQUIDS WELL. LUNG SOUNDS CLEAR. ABDOMEN SOFT/TENDER WITH ACTIVE BOWEL SOUNDS. ACCORDING TO PT HIS LAST BOWEL MOVEMENT WAS YESTERDAY. WILL CONTINUE TO MONITOR.
[2021-02-23] VITALS (8 sets, daily range): BP systolic 177–221; BP diastolic 89–109; PULSE 47–62; RESP 15–20; TEMP 36.7–37.3; O2SAT 93–100; BMI 29.8; BMI 29.9
--- NOTE | 2021-02-23 03:59 | PC.NURSE ---
Pt is A/O x4. No acute changes this shift, and pt has slept very well all night. IV patent with NS @100ml/hr. Pt has tolerated clear diet well. Pt's B/P has continued to be elevated all night. Call light within reach, no concerns at this time.
[2021-02-23 06:45] LABS: Basophils % 0.2 % (0.1-2.0); Eosinophils % 0.3 % (0.1-12.0); Hematocrit 44.6 % (42.0-52.0); Hemoglobin 14.8 g/dL (14.1-18.0); Lymphocytes # 1.3 K/mm3 (0.7-4.5); Lymphocytes % 18.8 % (10-50); Mean Corpuscular HGB Conc 33.2 g/dL (31.8-35.4); Mean Corpuscular Hemoglobin 30.2 pg (27.0-31.2); Mean Corpuscular Volume 91.1 fl (80-94); Mean Platelet Volume 7.6 fl (7.4-10.4); Monocytes # 0.9 K/mm3 (0.1-1.0); Monocytes % 13.1 % (1.7-9.3); Neutrophils # 4.6 K/mm3 (1.8-7.8); Neutrophils % 67.7 % (37.0-80.0); Platelet Count 209 K/mm3 (142-424); White Blood Count 6.8 K/mm3 (4.8-10.8)
[2021-02-23 06:53] LABS: Anion Gap 11.4 mEq/L (5-15); Blood Urea Nitrogen 15 mg/dl (9-20); Calcium 8.3 mg/dl (8.4-10.2); Carbon Dioxide 28 mmol/L (22.0-30.0); Chloride 101 mmol/L (98-107); Creatinine Clearance Estimated 106 mL/min (50-200); Estimated Glomerular Filt Rate 98 ml/min (>60); GFR (African American) 119 ML/MIN (>60); Glucose 103 mg/dl (74-100); Potassium 3.4 mmoL/L (3.5-5.1); Sodium 137 mmol/L (136-145)
[2021-02-23 09:27] LABS: Amylase 44 U/L (30-110); Lipase 27 U/L (23-300)
[2021-02-23 09:34] LABS: C-Reactive Protein 13.2 mg/L (0-4)
[2021-02-23 09:50] LABS: Erythrocyte Sedimentation Rate 16 mm/hr (0-20)
--- NOTE | 2021-02-23 12:16 | PC.NURSE ---
Got an order for Cardiac consult. ALICIA De Souza is out of office at this time. Unsure whom will round on pt at this time. Mx continues.
--- NOTE | 2021-02-23 12:35 | CA_ITS ---
APPROVED REPORT EXAM: Comprehensive 2D, Doppler, and color-flow Echocardiogram Trauma Doctor: Nneka Fountain RT(R) Ht: 5 ft 11 in Wt: 213lbs BSA: 2.17 BP: 221/102 mmHg Indications: smoker, HTN, hyperlipidemia, CAD, GERD, marijuana usage 2D Dimensions LVOT 2.09 cm (M/F) 1.5-2.5 LVEF (Henao's) 53.20 % M: 52 - 72 LV Volume 151.20 mL M: 62 - 150 LV Volume Index 70.00 mL/m2 M: 34 - 74 LA Volume 68.90 mL LA Volume Index 31.89 mL/m2 (M/F) 16-34 M-Mode Dimensions RVDd 2.81 cm (0.9-2.6) LA Diam 3.70 cm (1.9-4.0) LVDd 5.89 cm (3.5-5.7) Ao Diam 2.71 cm (2.0-3.7) LVDs 3.72 cm (3.5-5.7) IVSd 0.99 cm (0.6-1.1) PWd 0.95 cm (0.6-1.1) EF (Teich) 65.90% FS 36.80% EDV (Teich) 172.50 mL ESV (Teich) 58.90 mL LV Diastology E Decel Time 230.00 (160-240 msec) E/A Ratio 1.2 MED E' 8.40 (< 7 cm/sec) E'/MED E' Ratio 12.95 (>14) LAT E' 8.90 (<10 cm/sec) E/LAT E' Ratio 12.22 (>14) Mitral Valve MV E Max Juanito. 109.00 (40-130 cm/s) MV A Velocity 91.00 (40-130 cm/s) E/A Ratio 1.20 MV Decel. Time 230.00 (160-240 ms) MV PHT 67.00 ms Left Ventricle Left atrium is mildly enlarged, left ventricle is normal size, mild concentric left ventricular hypertrophy, visually estimated ejection fraction 55% with no regional wall motion abnormality, diastolic parameters are inconclusive. Right Ventricle Right atrium and right ventricle are normal size and contractility. Aortic Valve Aortic valve is minimally thickened and fibrosed, there is no aortic stenosis or aortic insufficiency. Mitral Valve Mitral valve is grossly normal, there is trace mitral regurgitation. Tricuspid Valve Tricuspid valve grossly normal, there is trace tricuspid regurgitation, tricuspid regurgitation jet velocity is inadequate for calculation of the right ventricular systolic pressure. Pulmonic Valve Pulmonic valve is poorly visualized. Great Vessels Aortic root is normal size. Inferior vena cava is not well visualized. Pericardium No significant pericardial effusion noted. Conclusion 1. Normal left ventricular size, preserved left ventricular systolic function, visually estimated ejection fraction 55% with no regional wall motion abnormality, diastolic parameters are inconclusive. 2. Trace mitral and tricuspid regurgitation. 3. No significant pericardial effusion noted. Electronically signed by : Ariel Cespedes, 02/24/2021 16:11:08
--- NOTE | 2021-02-23 12:48 | CA_ITS ---
APPROVED REPORT Special Needs Librarian: CONRAD PERES Study Quality: Adequate, Due to overlying bowel gas. Indications: malignant HTN Risk Factors Hypertension Renal Artery Doppler Origin (R) 116.5/ cm/sec Proximal (R) 123.3/ cm/sec Mid (R) 131.9/ cm/sec Distal (R) 133.9/ cm/sec Renal Aorta Ratio (R) 1.34 Segmental A. (R) / cm/sec RI: 0.69 Segmental A. Sup (R) 17.0/6.0 cm/sec Segmental A. Mid (R) 22.0/7.0 cm/sec Segmental A. Inf (R) 20.0/6.0 cm/sec Origin (L) 120.4/ cm/sec Proximal (L) 129.0/ cm/sec Mid (L) 126.2/ cm/sec Distal (L) 119.4/ cm/sec Renal Aorta Ratio (L) 1.26 Segmental A. (L) / cm/sec RI: 0.68 Segmental A. Sup (L) 18.0/6.0 cm/sec Segmental A. Mid (L) 17.0/6.0 cm/sec Segmental A. Inf (L) 18.0/5.0 cm/sec Renal Measurements Kidney Size (R) 11.0x5.0 cm Cortical Thickness (R) 1.6 cm Kidney Size (L) 11.7x5.7 cm Cortical Thickness (L) 1.6 cm Findings This was a technically difficult and therefore limited exam due to the presence of bowel gas and abdominal movement with respiration. The proximal abdominal aorta is patent without significant stenoses or dilatations. Based on the renal/aortic ratio there is no evidence of significant stenosis in the bilateral renal arteries. Conclusion This was a technically difficult and therefore limited exam due to the presence of bowel gas and abdominal movement with respiration. The proximal abdominal aorta is patent without significant stenoses or dilatations. Based on the renal/aortic ratio there is no evidence of significant stenosis in the bilateral renal arteries. Electronically signed by : Preston Mc MD 02/23/2021 15:21:52
--- NOTE | 2021-02-23 12:54 | HMH.CNCARD ---
History of Present Illness Consult date: 02/23/21 Requesting physician: Nate Victor Consult reason: hypertension Chief complaint: Malignant HTN History of present illness: 60-year-old male presented to [facility] with worsening abdominal pain accompanied with vomiting for the past 3-4 days. Pt stated he has not been feeling well for at least a week. Pt stated along with the abdominal pain and vomiting also has been having episodes of diarrhea for 3 days. During this admission, patient was noted to have colonic diverticulosis with thickening proximal and mid and distal ileal region bowel wall thickening. This may suggest partial small bowel obstruction. This is being managed by PCP and GI. Patient denies chest pain, tightness or pressure. Patient denies shortness of breath. Patient does have history of tobacco use in which he did quit a few weeks ago. Pt stated that he had smoked for 30+ years at 2-3ppds. Tobacco cessation advised and counseled. No swelling of the lower extremities noted. Denies palpitations or dizziness. Cardiology was consulted due to uncontrolled hypertension and bradycardia. Due to the severe abd pain, pt is experiencing, this may be causing his uncontrolled hypertension. color television console monitor reveals sinus bradycardia with a heart rate of 51 bpm. Initial EKG performed revealed sinus rhythm with no ST abnormalities with a heart rate of 64 bpm. Pt denies history of Coronary artery disease. CT of the abdomen did reveal coronary artery calcification. Denies history of hyperlipidemia. Troponin negative x1. Patient noted to have hypokalemia and elevated CRP. Hypokalemia is being managed by PCP. This is being managed by PCP. Pain management is being managed by PCP and GI. Patient states his blood pressure has been uncontrolled for some time. Patient currently is on an ARB and beta-mike for hypertension. Due to patient being bradycardic, unable to increase beta mike at this time. Due to malignant and uncontrolled hypertension, will obtain renal duplex ultrasound to determine stenosis of the renal arteries. Will obtain echocardiogram to assess LV function and valve status. Will start patient on hydrochlorothiazide 25 mg p.o. daily and amlodipine 10 mg p.o. twice daily for better blood pressure control. Consider ischemic coronary artery disease work up evaluation at follow up unless pt develops symptoms. CT Abd/Pelvis IMPRESSION: 1. Mild diffuse small bowel wall thickening proximally and in the mid and distal ileal region as well as bowel wall thickening of the cecum and ascending colon. Findings are compatible with enterocolitis. Ischemic changes would be included in the differential diagnosis. There is approximately 40 percent stenosis of the mid to distal SMA however, no distal occlusive changes or emboli apparent. 2. Colonic diverticulosis but no evidence of diverticulitis. 3. Bilateral nephrolithiasis Thank you for allowing cardiology to participate in the care of this patient. [facility] History I have reviewed the patient's past medical history: Yes Medical History: Reports:: Coronary Artery Disease, Gastroesophageal Reflux Disease(GERD), Hyperlipidemia, Hypertension Denies:: Cancer, Diabetes Mellitus Type 1, Diabetes Mellitus Type 2, Internal Pacemaker, Lung Disease, MRSA, Seizures *Have you ever received a pneumonia vaccine?: No *Have you received a flu vaccine this season?: No Other Medical History: Denies: Blood Transfusion Reaction Other Surgeries: Yes: No Previous Surgery, Appendectomy, Cholecystectomy, Colonoscopy, Other. No: Pacemaker Amputation: No Fractures: Yes - *Social History Last grade of school completed: GED Smoking Status: Current every day smoker Tobacco Type: cigarettes # Packs/Day (cigarettes): 1 #Yrs smoked (if former smoker): 20 Alcohol Intake: never Alcohol Intake Frequency:: other Substance Use Type: marijuana *Occupational Status:: employed Housing: house Household Members: spou
--- NOTE | 2021-02-23 13:28 | HMH.HP ---
*Admission Date: 02/22/21 *Chief complaint: abd pain *History of present illness: 60-year-old male presented to ED with worsening abdominal pain accompanied with vomiting for the past 3-4 days. Pt stated he has not been feeling well for at least a week, pt states he has been Pt stated along with the abdominal pain and vomiting also has been having episodes of diarrhea for 3 days. pt states about 10 yrs ago he had a colonoscopy with exp lap by dr shelton. pt admitted for abd pain for further work up [facility] History I have reviewed the patient's past medical history: Yes Medical History: Reports:: Coronary Artery Disease, Gastroesophageal Reflux Disease(GERD), Hyperlipidemia, Hypertension Denies:: Cancer, Diabetes Mellitus Type 1, Diabetes Mellitus Type 2, Internal Pacemaker, Lung Disease, MRSA, Seizures *Have you ever received a pneumonia vaccine?: No *Have you received a flu vaccine this season?: No Other Medical History: Denies: Blood Transfusion Reaction Other Surgeries: Yes: No Previous Surgery, Appendectomy, Cholecystectomy, Colonoscopy, Other. No: Pacemaker Amputation: No Fractures: Yes - *Social History Last grade of school completed: GED Smoking Status: Current every day smoker Tobacco Type: cigarettes # Packs/Day (cigarettes): 1 #Yrs smoked (if former smoker): 20 Alcohol Intake: never Alcohol Intake Frequency:: other Substance Use Type: marijuana *Occupational Status:: employed Housing: house Household Members: spouse *Travel in the last 8 weeks: None Family Hx:: Coronary Artery Disease, Diabetes, Hypertension Review of Systems - Review of Systems Review of systems:: pertinent systems reviewed and negative unless documented below - Constitutional Denies anorexia, Denies weakness - Eyes Denies blurry vision - ENT Denies poor balance, Denies sore throat - *Cardiovascular Denies chest pain at rest - *Respiratory Denies change in phlegm color - *Gastrointestinal Reports abdominal pain, Reports nausea, Reports vomiting - *Genitourinary Denies urinary frequency - *Musculoskeletal Denies abnormal walking, Denies stiffness - Integumentary/Breasts Denies sores - *Neurologic Denies abnormal hearing, Denies abnormal speech - Psychiatric Denies lack of enjoyment - Endocrine Denies cold intolerance - Hematologic/Lymphatic Denies easy bruising - Allergic/Immunologic Denies GI upset with certain foods Meds Home Medications Medication Instructions Recorded Confirmed Type hydrochlorothiazide 25 mg tablet 25 mg PO DAILY #90 tab 08/12/20 02/22/21 Rx aspirin 81 mg tablet,delayed 81 mg PO DAILY #90 tab 11/03/20 02/22/21 Rx release losartan 100 mg tablet 100 mg PO DAILY #90 tab 12/07/20 02/22/21 Rx metoprolol succinate 25 mg 25 mg PO DAILY #90 tab 12/07/20 02/22/21 Rx tablet,extended release 24 hr Allergies Allergy/AdvReac Type Severity Reaction Status Date / Time codeine [CODEINE] Allergy Severe S-SWELLS-OR Verified 04/06/20 10:05 AL/THROAT acetaminophen Allergy Mild Unknown Verified 04/06/20 10:05 [From DARVOCET-N 100] allergy reaction morphine [MORPHINE] Allergy Mild Unknown Verified 04/06/20 10:05 allergy reaction Penicillins Allergy Mild Unknown Verified 04/06/20 10:05 allergy reaction propoxyphene Allergy Mild Unknown Verified 04/06/20 10:05 [From DARVOCET-N 100] allergy reaction Exam Vital signs and Labs for Last 24 Hours: Temp Pulse Resp BP Pulse Ox 98.0 F 49 L 15 221/103 H 95 02/23/21 08:00 02/23/21 11:38 02/23/21 08:00 02/23/21 11:38 02/23/21 08:00 Laboratory Results - last 24 hr 02/23/21 05:43: WBC 6.8 D, RBC 4.90, Hgb 14.8, Hct 44.6, MCV 91.1, MCH 30.2, MCHC 33.2, RDW 13.0, Plt Count 209, MPV 7.6, Neut % (Auto) 67.7, Lymph % (Auto) 18.8, [place] % (Auto) 13.1 H, Eos % (Auto) 0.3, Baso % (Auto) 0.2, Neut # (Auto) 4.6, Lymph # (Auto) 1.3, [place] # (Auto) 0.9, Eos # (Auto) 0.0, Baso # (Auto) 0.0 02/23/21 05:
--- NOTE | 2021-02-23 17:21 | PC.NURSE ---
Tried to call Rosa VARGAS back at this time for update. No ans, called x 2 times. VSS at this time.
[2021-02-24] VITALS (7 sets, daily range): BP systolic 140–206; BP diastolic 75–95; PULSE 50–80; RESP 16–20; TEMP 36.9–37.2; O2SAT 95–98; BMI 29.2
--- NOTE | 2021-02-24 03:40 | PC.NURSE ---
Pt is A/O x4. No acute changes this shift. pt slept well. Complained of pain x1 this shift admin meds per mar with relief. Pt is on RA with stats >90. B/P at beginning of shift was still elevated, at midnight it was 140/75. pt remained josé all night with pulse in the 50's. Call light within reach, no concerns at this time.
[2021-02-24 07:34] LABS: Basophils # 0.1 K/mm3 (0-0.2); Basophils % 0.5 % (0.1-2.0); Eosinophils # 0.1 K/mm3 (0.0-0.4); Eosinophils % 0.8 % (0.1-12.0); Hemoglobin 16.4 g/dL (14.1-18.0); Lymphocytes # 2.8 K/mm3 (0.7-4.5); Mean Corpuscular Hemoglobin 31.1 pg (27.0-31.2); Mean Corpuscular Volume 88.8 fl (80-94); Mean Platelet Volume 7.6 fl (7.4-10.4); Monocytes # 0.9 K/mm3 (0.1-1.0); Neutrophils # 5.8 K/mm3 (1.8-7.8); Neutrophils % 60.7 % (37.0-80.0); Platelet Count 229 K/mm3 (142-424); Red Blood Count 5.29 M/mm3 (4.60-6.20); Red Cell Distribution Width 13.5 % (11.5-17.5); White Blood Count 9.6 K/mm3 (4.8-10.8)
[2021-02-24 07:55] LABS: Anion Gap 10.4 mEq/L (5-15); Blood Urea Nitrogen 14 mg/dl (9-20); Calcium 8.7 mg/dl (8.4-10.2); Carbon Dioxide 28 mmol/L (22.0-30.0); Chloride 101 mmol/L (98-107); Creatinine Clearance Estimated 104 mL/min (50-200); Estimated Glomerular Filt Rate 98 ml/min (>60); GFR (African American) 119 ML/MIN (>60); Glucose 115 mg/dl (74-100); Potassium 3.4 mmoL/L (3.5-5.1); Sodium 136 mmol/L (136-145)
--- NOTE | 2021-02-24 08:36 | HMH.PNCARD ---
Subjective Date: 02/24/21 Time: 08:36 Principal diagnosis: Abdominal pain, HTN Interval history: 60-year-old white male in bed with some mild discomfort related to abdominal pain. Patient denies any chest pain, pressure or tightness. He relates intermittent abdominal discomfort over the last 10 to 15 years with multiple hospitalizations. Symptoms typically resolve with IV fluids but he has had EGD and colonoscopy at this hospital approximately 6 years ago without etiology. He has reportedly had exploratory surgery of his abdomen to discover a cause for his abdominal pain without success in finding a source. Patient's blood pressure was improved overnight once his pain was controlled. His pain has recurred this morning and subsequently his blood pressure has increased. Renal artery duplex was a difficult study but appears to show no evidence of renal artery stenosis. Echocardiogram results are pending Exam Vital signs and Labs for Last 24 Hours: Temp Pulse Resp BP Pulse Ox 98.5 F 56 L 16 206/95 H 98 02/24/21 08:00 02/24/21 08:00 02/24/21 08:00 02/24/21 08:00 02/24/21 08:00 Laboratory Results - last 24 hr 02/23/21 05:43: ESR 16 02/23/21 05:43: C-Reactive Protein 13.2 H, Amylase 44, Lipase 27 02/24/21 07:23: WBC 9.6 D, RBC 5.29, Hgb 16.4, Hct 47.0, MCV 88.8, MCH 31.1, MCHC 35.0, RDW 13.5, Plt Count 229, MPV 7.6, Neut % (Auto) 60.7, Lymph % (Auto) 29.0, [place] % (Auto) 9.0, Eos % (Auto) 0.8, Baso % (Auto) 0.5, Neut # (Auto) 5.8, Lymph # (Auto) 2.8, [place] # (Auto) 0.9, Eos # (Auto) 0.1, Baso # (Auto) 0.1 02/24/21 07:23: Sodium 136, Potassium 3.4 L, Chloride 101, Carbon Dioxide 28, Anion Gap 10.4, BUN 14, Creatinine 0.80, Estimated Creat Clear 104, Estimated GFR 98, Est GFR ( Amer) 119, Glucose 115 H, Calcium 8.7 I & O for Last 24 hours: Intake & Output 07/12/21 07/13/21 07/14/21 07/15/21 11:59 11:59 11:59 11:59 Intake Total 1987 1602 / 1602 Output Total 0 / 0 Balance 1987 1602 / 1602 Weight 214 lb 6 oz 213 lb 1 oz 209 lb - Constitutional no acute distress - *Routine HEENT Exam Head: Present: normocephalic Eye: Present: EOMI, PERRL ENT: Present: mucous membranes moist - *Routine Neck Exam Present: supple. Absent: lymphadenopathy - *Routine Respiratory Exam Present: CTA bilaterally - *Routine Cardiovascular Exam Present: RRR - *Routine Abdominal Exam Present: soft, normoactive bowel sounds. Absent: tenderness - *Routine Extremities Exam Absent: cyanosis, clubbing, edema - *Routine Skin Exam Present: warm. Absent: rash - *Routine Neurological Exam Present: alert, oriented X3 Progress Note: A&P (1) Enteritis Status: Acute (2) Hypertension, poor control Status: Acute (3) Nausea vomiting and diarrhea Status: Acute (4) Tobacco abuse Status: Chronic Assessment and Plan for All Diagnoses:: 1. Hypertension, continue irbesartan 300 mg daily, metoprolol 25 mg daily, HCTZ 25 mg daily, amlodipine 10 mg twice daily. Blood pressure improves with pain control, so will continue current medical regimen at this time. 2. Coronary artery calcification noted on CT, continue aspirin 81 mg daily 3. Hypokalemia, supplementation has been ordered 4. Gastroenteritis, nausea, vomiting and abdominal pain defer to PCP.
--- NOTE | 2021-02-24 10:03 | SW/DCPLANNER ---
I will provide this patient with information regarding [facility] for transport to and from appointments. This patient will discharge home later today.
--- NOTE | 2021-02-24 13:58 | DIET.NUTRFU ---
Pt advanced to full liquids for lunch, states he tolerated okay but states he does not feel ready to go home as his pain is unchanged. He reports abdominal pain but states it is no more pain or additional symptoms than he experienced with clear liquids and requests to continue full liquid trial. He has consumed about 50% of his liquid meals t/o stay. Weight is down 6# since admission.
--- NOTE | 2021-02-24 16:14 | HMH.DCSUM ---
General - General Admission date:: 02/22/21 Discharge date: 02/24/21 HPI HPI: 60-year-old male presented to ED with worsening abdominal pain accompanied with vomiting for the past 3-4 days. Pt stated he has not been feeling well for at least a week, pt states he has been Pt stated along with the abdominal pain and vomiting also has been having episodes of diarrhea for 3 days. pt states about 10 yrs ago he had a colonoscopy with exp lap by dr shelton. pt admitted for abd pain for further work up Hospital Course Hospital Course: 60-year-old male presented to ED with worsening abdominal pain accompanied with vomiting for the past 3-4 days. Pt stated he has not been feeling well for at least a week, pt states he has been Pt stated along with the abdominal pain and vomiting also has been having episodes of diarrhea for 3 days. pt states about 10 yrs ago he had a colonoscopy with exp lap by dr shelton. pt admitted for abd pain for further work up 02/22/21 Abd/Pelvis C T: IMPRESSION: 1. Mild diffuse small bowel wall thickening proximally and in the mid and distal ileal region as well as bowel wall thickening of the cecum and ascending colon. Findings are compatible with enterocolitis. Ischemic changes would be included in the differential diagnosis. There is approximately 40 percent stenosis of the mid to distal SMA however, no distal occlusive changes or emboli apparent. 2. Colonic diverticulosis but no evidence of diverticulitis. 3. Bilateral nephrolithiasis Dictated by: Preston Mc 02/23/21 ECHO: Conclusion 1. Normal left ventricular size, preserved left ventricular systolic function, visually estimated ejection fraction 55% with no regional wall motion abnormality, diastolic parameters are inconclusive. 2. Trace mitral and tricuspid regurgitation. 3. No significant pericardial effusion noted. Electronically signed by : Ariel Cespedes, 02/23/21 Renal Artery Duplex: Conclusion This was a technically difficult and therefore limited exam due to the presence of bowel gas and abdominal movement with respiration. The proximal abdominal aorta is patent without significant stenoses or dilatations. Based on the renal/aortic ratio there is no evidence of significant stenosis in the bilateral renal arteries. Electronically signed by : Preston Mc MD Cardiology has seen and recommends: 1. Hypertension, continue irbesartan 300 mg daily, metoprolol 25 mg daily, HCTZ 25 mg daily, amlodipine 10 mg twice daily. Blood pressure improves with pain control, so will continue current medical regimen at this time. 2. Coronary artery calcification noted on CT, continue aspirin 81 mg daily 3. Hypokalemia, supplementation has been ordered 4. Gastroenteritis, nausea, vomiting and abdominal pain defer to PCP. Blood pressures were 200s/100s, after cardiology seen and medications adjustments no pressure now 140s/70s 60-year-old male patient sitting up in bed resting quietly with eyes closed, awakens easily to verbal stimuli. Reports he does feel better he is tolerating a regular diet and has had a normal bowel movement as well as urinating without difficulty. He has been up and about in his room. Discussed discharged home with him today, he is agreeable to this PLAN: 1. Discharge home today 2. Follow-up with PCP in 1 week 3. Follow-up with cardiology in 2 weeks 4. Irbesartan 300 mg daily 5. Metoprolol 25 mg daily 6. HCTZ 25 mg daily 7. Amlodipine 10 mg twice daily Objective Vital signs: Temp Pulse Resp BP Pulse Ox 98.5 F 69 17 145/93 H 97 02/24/21 15:50 02/24/21 15:50 02/24/21 15:50 02/24/21 15:50 02/24/21 15:50 no acute distress - *Routine HEENT Exam Head: Present: normocephalic Eye: Present: EOMI ENT: Present: mucous membranes moist - *Routine Neck Exam Present: supple, trachea midline. Absent: tracheal deviation - *Routine Res
== END 2021-02-24 18:30 | disposition home or self-care (01) ==
LOC: ER 11:27 → 2ND 13:40
PROVIDERS: Nurse Practitioner Family; Admitting Provider Emergency Medicine; Emergency Provider Emergency Medicine; PCP Emergency Medicine; Visit Provider Emergency Medicine
DX: K52.9 Noninfective gastroenteritis and colitis, unspecified (principal); I10 Essential (primary) hypertension; J44.9 Chronic obstructive pulmonary disease, unspecified; I25.10 Atherosclerotic heart disease of native coronary artery without angina pectoris; E78.5 Hyperlipidemia, unspecified; F17.210 Nicotine dependence, cigarettes, uncomplicated; Z79.899 Other long term (current) drug therapy; Z88.8 Allergy status to other drugs, medicaments and biological substances; Z20.822 Contact with and (suspected) exposure to COVID-19
CPT/HCPCS: 74177; 80048; 80053; 81001; 82150; 83605; 83690; 84100; 84484; 85025; 85651; 86140; 93005; 93306; 93976; 96365; 99284; 99291; G0378; J2405; Q9967; U0003

== ENCOUNTER 2023-05-18 17:03 | Emergency (ER) | payer MEDICAID, SELFPAY ==
[2023-05-18 17:04] VITALS: BP 210/118; PULSE 61; RESP 16; TEMP 36.7; O2SAT 95; BMI 32.8
--- NOTE | 2023-05-18 17:05 | PC.NURSE ---
RENETTA SEPULVEDA at for pt mollyal
--- NOTE | 2023-05-18 17:10 | CT_ITS ---
PROCEDURE INFORMATION: Exam: CT Head Without Contrast Exam date and time: 05/18/2023 5:21 PM Age: 62 years old Clinical indication: Stroke-like symptoms; RT upper extremity and RT lower extremity weakness; Additional info: Rle weakness TECHNIQUE: Imaging protocol: Computed tomography of the head without contrast. Radiation optimization: All CT scans at this facility use at least one of these dose optimization techniques: automated exposure control; mA and/or kV adjustment per patient size (includes targeted exams where dose is matched to clinical indication); or iterative reconstruction. Other technique: STROKE PROTOCOL was implemented. REPORTING DATA: Count of CT and Cardiac NM exams in prior 12 months: This patient has received 0 known CTs and 0 known cardiac nuclear medicine studies in the 12 months prior to the current study. COMPARISON: CR [id number] XR cervical spine 5V 09/12/2018 10:24 AM FINDINGS: Brain: Lacunar type infarct in the left aspect of the eliot is age indeterminate and may be chronic. There are [id number] involutional changes of the white matter with mild volume loss of the brain, commensurate with age. No midline shift or mass effect. No acute hemorrhage. Cerebral ventricles: No ventriculomegaly. Paranasal sinuses: No significant inflammation. No fluid levels. Mastoid air cells: Visualized mastoid air cells are well aerated. Bones/joints: Unremarkable. No acute fracture. Soft tissues: Unremarkable. IMPRESSION: Lacunar type infarct in the left eliot is age indeterminate. If acute ischemia suspected clinically recommend MRI brain follow-up. No mass effect or hemorrhage. ASSESSMENT: ASPECTS ([place] Stroke Program Early CT Score) is 10.
--- NOTE | 2023-05-18 17:10 | CT_ITS ---
PROCEDURE INFORMATION: Exam: CTA Neck With Contrast Exam date and time: 05/18/2023 5:21 PM Age: 62 years old Clinical indication: Stroke-like symptoms; RT upper extremity and RT lower extremity weakness; Additional info: Rle weakness TECHNIQUE: Imaging protocol: Computed tomographic angiography of the neck with contrast. 3D rendering (Not supervised by radiologist): MIP and/or 3D reconstructed images were created by the technologist. Radiation optimization: All CT scans at this facility use at least one of these dose optimization techniques: automated exposure control; mA and/or kV adjustment per patient size (includes targeted exams where dose is matched to clinical indication); or iterative reconstruction. Contrast material: ISO 370; Contrast volume: 100 ml; Contrast route: INTRAVENOUS (IV); REPORTING DATA: Count of CT and Cardiac NM exams in prior 12 months: This patient has received 0 known CTs and 0 known cardiac nuclear medicine studies in the 12 months prior to the current study. COMPARISON: CR [id number] XR cervical spine 5V 09/12/2018 10:24 AM FINDINGS: Right common carotid artery: No stenosis. No dissection or occlusion. Right internal carotid artery: Atherosclerotic changes proximal right internal carotid artery are seen without significant stenosis. Right external carotid artery: No occlusion or stenosis of the origin. Left common carotid artery: No stenosis. No dissection or occlusion. Left internal carotid artery: Atherosclerotic changes are proximal left internal carotid artery are seen without significant stenosis. Left external carotid artery: No occlusion or stenosis of the origin. Right vertebral artery: No stenosis. No dissection or occlusion. Left vertebral artery: No stenosis. No dissection or occlusion. Soft tissues: Normal. No significant soft tissue swelling. Bones/joints: No acute fracture. IMPRESSION: No occlusion or significant stenosis. REFERENCES: NASCET CRITERIA. The degree of stenosis in the cervical segment of the internal carotid artery is based on NASCET criteria. Normal is no stenosis. Mild is less than 50% stenosis. Moderate is 50-69% stenosis. Severe is 70% to 99% stenosis. Total occlusion is no detectable patent lumen.
--- NOTE | 2023-05-18 17:10 | CT_ITS ---
PROCEDURE INFORMATION: Exam: CTA Head With Contrast, Arteriography Exam date and time: 05/18/2023 5:21 PM Age: 62 years old Clinical indication: Stroke-like symptoms; RT upper extremity and RT lower extremity weakness; Additional info: Rle weakness TECHNIQUE: Imaging protocol: Computed tomographic angiography of the head with contrast. Exam focused on the arteries. 3D rendering (Not supervised by radiologist): MIP and/or 3D reconstructed images were created by the technologist. Radiation optimization: All CT scans at this facility use at least one of these dose optimization techniques: automated exposure control; mA and/or kV adjustment per patient size (includes targeted exams where dose is matched to clinical indication); or iterative reconstruction. Contrast material: ISO 370; Contrast volume: 100 ml; Contrast route: INTRAVENOUS (IV); REPORTING DATA: Count of CT and Cardiac NM exams in prior 12 months: This patient has received 0 known CTs and 0 known cardiac nuclear medicine studies in the 12 months prior to the current study. COMPARISON: 1. CT HEAD/BRAIN WO CON 05/18/2023 5:21 PM 2. CR [id number] XR cervical spine 5V 09/12/2018 10:24 AM FINDINGS: ANTERIOR CIRCULATION: Right internal carotid artery: Atherosclerotic changes right internal carotid with mild stenosis. Right middle cerebral artery: No occlusion or significant stenosis. No aneurysm. Right anterior cerebral artery: No occlusion or significant stenosis. No aneurysm. Left internal carotid artery: Intracranial segment is patent with no significant stenosis. No aneurysm. Left middle cerebral artery: No occlusion or significant stenosis. No aneurysm. Left anterior cerebral artery: No occlusion or significant stenosis. No aneurysm. POSTERIOR CIRCULATION: Right vertebral artery: No occlusion or significant stenosis. No aneurysm. Left vertebral artery: No occlusion or significant stenosis. No aneurysm. Basilar artery: No occlusion or significant stenosis. No aneurysm. Right posterior cerebral artery: No occlusion or significant stenosis. No aneurysm. Left posterior cerebral artery: No occlusion or significant stenosis. No aneurysm. Brain: No definite mass, mass effect, or midline shift. Cerebral ventricles: No ventriculomegaly. Bones/joints: Unremarkable. No acute fracture. Soft tissues: Unremarkable. IMPRESSION: No occlusion or significant stenosis.
--- NOTE | 2023-05-18 17:10 | HMH.EDGENADL ---
Discharge Plan Disposition Chief Complaint: Neuro Symptoms/Deficit Prescriptions Prescriptions: No Action allopurinol 100 mg tablet 100 mg PO DAILY Qty: 30 0RF amlodipine 10 mg tablet 10 mg PO BID 30 Days Qty: 60 0RF aspirin 81 mg tablet,delayed release (DR/EC) 81 mg PO DAILY Qty: 30 0RF Rx Instructions: Pt hydrochlorothiazide 25 mg tablet 25 mg PO DAILY Qty: 30 0RF Rx Instructions: 30 days to make an appt irbesartan 300 mg tablet 300 mg PO DAILY 30 Days Qty: 30 0RF metoprolol succinate 25 mg tablet extended release 24 hr 25 mg PO DAILY 30 Days Qty: 30 0RF Rx Instructions: pt needs to make an appointment Referrals Follow up/Referrals: Leland Ivory MD [Primary Care Provider] - See instructions Discharge ED Provider: Peter Solomon General Adult HPI General Chief complaint: Neuro Symptoms/Deficit Stated complaint: Right leg numbness Time Seen by Provider: 05/18/23 17:08 History of Present Illness HPI narrative: The patient presents with a chief complaint of right arm and leg tingling, which began upon waking up. The patient reports going to bed around 12 or 1 o'clock and experiencing no difficulty with speech or vision. However, they are experiencing a headache and numbness in their right fingertips. He did experience a slip while working on a ladder, painting, yesterday, but was ambulatory at the time, did not fall off the ladder, did not strike his head. The patient has no known medical problems and is right-handed. Additional history limited secondary to acuity of patient's condition. Patient denies any daily medications although per chart review has history of CAD, hypertension, tobacco use disorder. Related Data Previous Rx's Medication Instructions Recorded allopurinol 100 mg tablet 100 mg PO DAILY #30 tabs 05/08/22 amlodipine 10 mg tablet 10 mg PO BID 30 days #60 tabs 05/08/22 aspirin 81 mg tablet,delayed 81 mg PO DAILY Heart disease #30 05/08/22 release tabs hydrochlorothiazide 25 mg tablet 25 mg PO DAILY Hypertension #30 05/08/22 tabs irbesartan 300 mg tablet 300 mg PO DAILY 30 days #30 tabs 05/08/22 metoprolol succinate 25 mg 25 mg PO DAILY hypertension 30 05/08/22 tablet,extended release 24 hr days #30 tabs Allergies Allergy/AdvReac Type Severity Reaction Status Date / Time codeine [CODEINE] Allergy Severe S-SWELLS-OR Verified 04/06/20 10:05 AL/THROAT acetaminophen Allergy Mild Unknown Verified 04/06/20 10:05 [From DARVOCET-N 100] allergy reaction morphine [MORPHINE] Allergy Mild Unknown Verified 04/06/20 10:05 allergy reaction Penicillins Allergy Mild Unknown Verified 04/06/20 10:05 allergy reaction propoxyphene Allergy Mild Unknown Verified 04/06/20 10:05 [From DARVOCET-N 100] allergy reaction PFSH [facility] Disclaimer: The information contained in this section may have been updated after the patient was seen, as this information can be updated by other users. 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
--- NOTE | 2023-05-18 17:15 | PC.NURSE ---
pt to CT via stretcher
--- NOTE | 2023-05-18 17:28 | PC.NURSE ---
pt back in room
[2023-05-18 17:30] VITALS: BP 226/122; PULSE 59; O2SAT 99
[2023-05-18 17:32] LABS: INR 1.01 (0.9-1.1); Prothrombin Time 10.9 seconds (10.1-12.5)
[2023-05-18 17:34] LABS: Basophils % 0.5 % (0.1-2.0); Eosinophils # 0.3 K/mm3 (0.0-0.4); Eosinophils % 4.2 % (0.1-12.0); Hemoglobin 16.6 g/dL (14.1-18.0); Lymphocytes # 1.8 K/mm3 (0.7-4.5); Lymphocytes % 21.6 % (10-50); Mean Corpuscular HGB Conc 31.8 g/dL (31.8-35.4); Mean Corpuscular Volume 94.2 fl (80-94); Mean Platelet Volume 7.6 fl (7.4-10.4); Monocytes # 0.6 K/mm3 (0.1-1.0); Monocytes % 7.1 % (1.7-9.3); Neutrophils # 5.4 K/mm3 (1.8-7.8); Neutrophils % 66.6 % (37.0-80.0); Platelet Count 203 K/mm3 (142-424); Red Blood Count 5.52 M/mm3 (4.60-6.20); Red Cell Distribution Width 13.8 % (11.5-17.5); White Blood Count 8.1 K/mm3 (4.8-10.8)
--- NOTE | 2023-05-18 17:43 | PC.NURSE ---
Dr. Solomon s/w [facility]
[2023-05-18 17:44] LABS: Activated Partial Thrombo Time 27.1 seconds (22.8-30.6); Alanine Aminotransferase 37 U/L (12-78); Albumin/Globulin Ratio 1.2 (1.1-1.8); Alkaline Phosphatase 93 U/L (38-126); Anion Gap 8.8 mEq/L (5-15); Aspartate Amino Transferase 39 U/L (17-59); Bilirubin,Total 1.1 mg/dl (0.2-1.3); Blood Urea Nitrogen 13 mg/dl (9-20); Calcium 8.7 mg/dl (8.4-10.2); Carbon Dioxide 31 mmol/L (22.0-30.0); Chloride 106 mmol/L (98-107); Creatinine Clearance Estimated 114 mL/min (50-200); Estimated Glomerular Filt Rate 75 ml/min (>60); GFR (African American) 91 ML/MIN (>60); Globulin 3.3 g/dL (1.3-3.2); Glucose 130 mg/dl (74-100); Potassium 3.8 mmoL/L (3.5-5.1); Sodium 142 mmol/L (136-145); Total Protein,Serum 7.3 g/dl (6.3-8.2)
--- NOTE | 2023-05-18 17:52 | PC.NURSE ---
RENETTA SEPULVEDA on phone with YOSELYN
--- NOTE | 2023-05-18 17:55 | PC.NURSE ---
Contacting [facility] for possible transfer
[2023-05-18 17:56] LABS: Troponin I < 0.01 ng/ml (0.00-0.034)
--- NOTE | 2023-05-18 18:00 | PC.NURSE ---
Radiology called to burn imaging disc
[2023-05-18 18:01] VITALS: BP 281/134; PULSE 56; RESP 18; O2SAT 99
--- NOTE | 2023-05-18 18:06 | PC.NURSE ---
Dr. roth speaking with [facility]ist at this time
--- NOTE | 2023-05-18 18:08 | PC.NURSE ---
dr. roth states hospitalist from [facility] will be calling back
--- NOTE | 2023-05-18 18:10 | PC.NURSE ---
Dr. Solomon reports ordered medications for pt bp-- states SBP goal of 180
--- NOTE | 2023-05-18 18:16 | PC.NURSE ---
RENETTA SEPULVEDA speaking with DR. Rodriguez, [facility] at this time
[2023-05-18 18:40] VITALS: BP 205/115; PULSE 59; RESP 19; TEMP 36.8; O2SAT 96
[2023-05-18 18:43] LABS: Hemoglobin A1C 5.6 % (4.0-6.0)
--- NOTE | 2023-05-18 18:54 | PC.NURSE ---
transfer record completed. updated pt on transport time expectations.
--- NOTE | 2023-05-18 19:04 | PC.NURSE ---
[facility] made aware of need for pt transport. Advised it may be a while due to both ambulances being out on runs.
[2023-05-18 20:40] VITALS: BP 146/112
--- NOTE | 2023-05-18 21:25 | PC.NURSE ---
discussed transportation with md; was advised that patient is to wait on ambulance and is not necessary for airflight
[2023-05-18 21:34] LABS: Troponin I < 0.01 ng/ml (0.00-0.034)
== END 2023-05-18 22:40 | disposition short-term general hospital (02) ==
PROVIDERS: Emergency Provider Emergency Medicine; PCP Internal Medicine Adolescent Medicine
DX: I63.532 Cerebral infarction due to unspecified occlusion or stenosis of left posterior cerebral artery (principal); I25.84 Coronary atherosclerosis due to calcified coronary lesion; I51.89 Other ill-defined heart diseases; E66.9 Obesity, unspecified; Z87.891 Personal history of nicotine dependence; I10 Essential (primary) hypertension
CPT/HCPCS: 36415; 70450; 70496; 70498; 80053; 83036; 84484; 85025; 85610; 85730; 96374; 99285; Q9967

== ENCOUNTER 2023-10-05 15:27 | Outpatient (CLI) | payer MEDICAID, SELFPAY ==
[2023-10-05 15:35] LABS: Microscopic, Urine URINE MICROSCOPIC (MICROSCOPIC)
[2023-10-05 16:24] LABS: Basophils % 0.3 % (0.1-2.0); Eosinophils # 0.2 K/mm3 (0.0-0.4); Eosinophils % 1.8 % (0.1-12.0); Hematocrit 48.2 % (42.0-52.0); Hemoglobin 15.9 g/dL (14.1-18.0); Lymphocytes # 1.7 K/mm3 (0.7-4.5); Lymphocytes % 18.7 % (10-50); Mean Corpuscular HGB Conc 32.9 g/dL (31.8-35.4); Mean Corpuscular Hemoglobin 31.8 pg (27.0-31.2); Mean Corpuscular Volume 96.4 fl (80-94); Mean Platelet Volume 8.3 fl (7.4-10.4); Monocytes # 0.7 K/mm3 (0.1-1.0); Monocytes % 7.8 % (1.7-9.3); Neutrophils # 6.6 K/mm3 (1.8-7.8); Neutrophils % 71.4 % (37.0-80.0); Platelet Count 254 K/mm3 (142-424); White Blood Count 9.2 K/mm3 (4.8-10.8)
[2023-10-05 16:33] LABS: Appearance,Urine CLEAR (Clear); Bilirubin,Urine Negative (Negative); Blood, Urine Negative (Negative); Color,Urine YELLOW (Yellow); Glucose,Urine (UA) Negative (Negative); Ketones,Urine Negative (Negative); Leukocyte Esterase,Urine Negative (Negative); Nitrate,Urine Negative (Negative); Protein,Urine Negative (Negative); Specific Gravity, Urine 1.015 (1.005-1.030)
[2023-10-05 16:45] LABS: Alanine Aminotransferase 42 U/L (12-78); Albumin Level 4.6 g/dl (3.5-5.0); Albumin/Globulin Ratio 1.5 (1.1-1.8); Alkaline Phosphatase 90 U/L (38-126); Anion Gap 10.3 mEq/L (5-15); Aspartate Amino Transferase 36 U/L (17-59); Blood Urea Nitrogen 15 mg/dl (9-20); Calcium 9.6 mg/dl (8.4-10.2); Carbon Dioxide 30 mmol/L (22.0-30.0); Chloride 102 mmol/L (98-107); Chol/HDL Ratio 2.5 (1-3.5); Cholesterol 138 mg/dl (140-200); Estimated Glomerular Filt Rate 75 ml/min (>60); GFR (African American) 91 ML/MIN (>60); Globulin 3.1 g/dL (1.3-3.2); Glucose 89 mg/dl (74-100); HDL Cholesterol 55 mg/dl (40-60); Potassium 4.3 mmoL/L (3.5-5.1); Sodium 138 mmol/L (136-145); Total Protein,Serum 7.7 g/dl (6.3-8.2); Triglycerides 59 mg/dl (30-150); VLDL Cholesterol 12 mg/dL (0-40)
[2023-10-05 16:52] LABS: Hemoglobin A1C 5.4 % (4.0-6.0)
[2023-10-05 16:55] LABS: Direct LDL Cholesterol 57.15 mg/dL (100-129)
[2023-10-05 17:01] LABS: Free T4 (Free Thyroxine) 1.42 ng/dl (0.78-2.19)
[2023-10-05 17:02] LABS: 25-OH Vitamin D, Total 64.9 ng/mL (30-100)
[2023-10-05 17:14] LABS: Prostate Specific Ag Screen 1.7 ng/ml (0.0-4.0)
[2023-10-05 17:33] LABS: Vitamin B12 463 pg/mL (239-931)
[2023-10-11 13:49] LABS: HBsAg Screen Negative (Negative); HCV Ab Reactive (Non Reactive); Hep A Ab, IGM Negative (Negative); Hep B Core Ab, IgM Negative (Negative)
== END 2023-10-05 23:59 ==
LOC: LAB 15:28
PROVIDERS: PCP Nurse Practitioner Family; Visit Provider Nurse Practitioner Family
DX: I10 Essential (primary) hypertension (principal); R53.83 Other fatigue; E66.9 Obesity, unspecified; R76.8 Other specified abnormal immunological findings in serum; E78.5 Hyperlipidemia, unspecified; Z79.899 Other long term (current) drug therapy; Z11.59 Encounter for screening for other viral diseases; Z91.89 Other specified personal risk factors, not elsewhere classified; Z68.32 Body mass index [BMI] 32.0-32.9, adult; Z12.5 Encounter for screening for malignant neoplasm of prostate; B96.89 Other specified bacterial agents as the cause of diseases classified elsewhere
CPT/HCPCS: 36415; 80053; 80061; 80074; 81001; 82306; 82607; 83036; 84155; 84439; 84443; 85025; 87086; G0103

== ENCOUNTER 2023-10-17 12:18 | Outpatient (CLI) | payer MEDICAID, SELFPAY ==
[2023-10-20 15:51] LABS: HCV Ab Reactive (Non Reactive)
== END 2023-10-17 23:59 ==
LOC: LAB 12:19
PROVIDERS: PCP Nurse Practitioner Family; Visit Provider Nurse Practitioner Family
DX: R76.8 Other specified abnormal immunological findings in serum (principal); Z79.899 Other long term (current) drug therapy
CPT/HCPCS: 36415

== ENCOUNTER 2023-11-01 14:37 | Outpatient (CLI) | payer MEDICAID, SELFPAY ==
[2023-11-01 15:31] LABS: INR 0.97 (0.9-1.1); Prothrombin Time 10.5 seconds (10.1-12.5)
[2023-11-02 14:59] LABS: HIV Screen 4th Generation wRfx Non Reactive (Non Reactive)
== END 2023-11-01 23:59 ==
LOC: LAB.DROPOF 14:37
PROVIDERS: PCP Internal Medicine; Visit Provider Internal Medicine
DX: R76.8 Other specified abnormal immunological findings in serum (principal)
CPT/HCPCS: 85610; 86703; G0432

== ENCOUNTER 2024-08-26 15:00 | Outpatient (CLI) | payer MEDICARE, MEDICAID, SELFPAY ==
[2024-08-26 16:50] LABS: Alanine Aminotransferase 18 U/L (12-78); Albumin Level 4.5 g/dl (3.5-5.0); Albumin/Globulin Ratio 1.7 (1.1-1.8); Alkaline Phosphatase 86 U/L (38-126); Anion Gap 14.3 mEq/L (5-15); Aspartate Amino Transferase 26 U/L (17-59); Bilirubin,Total 0.6 mg/dl (0.2-1.3); Blood Urea Nitrogen 19 mg/dl (9-20); Calcium 9.3 mg/dl (8.4-10.2); Carbon Dioxide 23 mmol/L (22.0-30.0); Chloride 108 mmol/L (98-107); Estimated Glomerular Filt Rate 85 ml/min (>60); GFR (African American) 102 ML/MIN (>60); Globulin 2.7 g/dL (1.3-3.2); Glucose 69 mg/dl (74-100); Potassium 4.3 mmoL/L (3.5-5.1); Sodium 141 mmol/L (136-145); Total Protein,Serum 7.2 g/dl (6.3-8.2)
== END 2024-08-26 23:59 | disposition home or self-care (01) ==
LOC: LAB 15:01
PROVIDERS: PCP Nurse Practitioner Family; Visit Provider Nurse Practitioner Family
DX: B19.20 Unspecified viral hepatitis C without hepatic coma (principal)
CPT/HCPCS: 36415; 80053; 87522